=== PATIENT | male | born 1955 | race African-American/Black ===

== ENCOUNTER 2016-10-16 12:10 | Inpatient (IN) | payer MEDICARE, OTHER ==
[~2016-10-16] VITALS: Ht 188 cm; Wt 81.7 kg
[~2016-10-16 12:10] MED LIST: AMLO5TAB22 PO; BENA25TA8 PO; BENZ1TAB PO; DOXA1 PO; HALO10 PO; HYDR-2768 PO; LITH1TAB3 PO
--- NOTE | 2016-10-16 12:27 | PD ---
HPI Chief Complaint: BA Time Seen by Provider: 12:26 Travel History International Travel<30 days: No Contact w/Intl Traveler<30days: No History of Present Illness HPI 61-year-old Afro-[place] male presents to emergency Department with schizophrenic symptoms. Patient is brought in under the Noriega act by local police. Patient is difficult to have a history from as he is somewhat uncooperative and not answering questions. Patient denies any medical complaints at this time. He has no known drug allergies. PFSH Past Medical History Hypertension: Yes Psychiatric: Yes Schizophrenia: Yes Social History Alcohol Use: No Tobacco Use: No Substance Use: No Allergies-Medications (Allergen,Severity, Reaction): Coded Allergies: No Known Allergies (Unverified , 10/16/16) Reported Meds & Prescriptions Reported Meds & Active Scripts Active Benadryl 25 mg tab (Diphenhydramine HCl) 25 Mg Tab 25 Mg PO Q8HR Haldol (Haloperidol) 10 Mg Tab 10 Mg PO TID Lithobid ([place] Carbonate) 300 Mg Tab 600 Mg PO ONCE Benztropine Mesylate 1 Mg Tab 1 Mg PO Q8HR Reported Hctz (Hydrochlorothiazide) 25 Mg Tab 25 Mg PO DAILY Amlodipine Besylate 5 mg (Amlodipine Besylate) 5 Mg Tab 1 Tab PO DAILY Doxazosin Mesylate 4 mg (Doxazosin Mesylate) 4 Mg Tab 4 Mg PO DAILY Review of Systems Except as stated in HPI: all other systems reviewed are Neg General / Constitutional: No: Fever Eyes: No: Visual changes HENT: No: Headaches Cardiovascular: No: Chest Pain or Discomfort Respiratory: No: Shortness of Breath Gastrointestinal: No: Abdominal Pain Genitourinary: No: Dysuria Musculoskeletal: No: Pain Skin: No Rash Neurologic: No: Weakness Psychiatric: No: Depression Endocrine: No: Polydipsia Hematologic/Lymphatic: No: Easy Bruising Physical Exam Narrative GENERAL: SKIN: Warm and dry. HEAD: Atraumatic. Normocephalic. EYES: Pupils equal and round. No scleral icterus. No injection or drainage. ENT: No nasal bleeding or discharge. Mucous membranes pink and moist. NECK: Trachea midline. No JVD. CARDIOVASCULAR: Regular rate and rhythm. RESPIRATORY: No accessory muscle use. Clear to auscultation. Breath sounds equal bilaterally. GASTROINTESTINAL: Abdomen soft, non-tender, nondistended. Hepatic and splenic margins not palpable. MUSCULOSKELETAL: Extremities without clubbing, cyanosis, or edema. No obvious deformities. NEUROLOGICAL: Awake and alert. No obvious cranial nerve deficits. Motor grossly within normal limits. Five out of 5 muscle strength in the arms and legs. Normal speech. PSYCHIATRIC: Appropriate mood and affect; insight and judgment normal. Data Data Last Documented VS Vital Signs Date Time Temp Pulse Resp B/P Pulse Ox O2 Delivery O2 Flow Rate FiO2 10/16/16 12:45 98.2 68 18 138/69 97 Room Air Orders Complete Blood Count With Diff (10/16/16 12:27) Comprehensive Metabolic Panel (10/16/16 12:27) Psych Screen (10/16/16 12:27) Drug Screen, Random Urine (10/16/16 12:27) [place] (Li) (10/16/16 12:40) Diet Regular Basic (10/16/16 Lunch) Labs Laboratory Tests Test 10/16/16 13:10 White Blood Count 4.9 TH/MM3 Red Blood Count 4.07 MIL/MM3 Hemoglobin 12.8 GM/DL Hematocrit 37.7 % Mean Corpuscular Volume 92.8 FL Mean Corpuscular Hemoglobin 31.6 PG Mean Corpuscular Hemoglobin 34.0 % Concent Red Cell Distribution Width 12.8 % Platelet Count 179 TH/MM3 Mean Platelet Volume 8.9 FL Neutrophils (%) (Auto) 67.9 % Lymphocytes (%) (Auto) 22.7 % Monocytes (%) (Auto) 6.5 % Eosinophils (%) (Auto) 2.3 % Basophils (%) (Auto) 0.6 % Neutrophils # (Auto) 3.3 TH/MM3 Lymphocytes # (Auto) 1.1 TH/MM3 Monocytes # (Auto) 0.3 TH/MM3 Eosinophils # (Auto) 0.1 TH/MM3 Basophils # (Auto) 0.0 TH/MM3 CBC Comment DIFF FINAL Differential Comment Sodium Level 137 MEQ/L Potassium Level 3.3 MEQ/L Chloride Level 104 MEQ/L Carbon Dioxide Level 26.1 MEQ/L Anion Gap 7 MEQ/L Blood Urea Nitrogen 7 MG/DL Creatinine 1.06 MG/DL Estimat Glomerular Filtration 86 ML/MIN Rate Random Glucose 79 MG/DL Calcium Level 9.5 MG/DL Total Bilirubin 0.3 MG/DL Aspartate Amino Transf 19 U/L (AST/SGOT) Alanine Aminotransferase 42 U/L (ALT/SGPT) Alkaline Phosphatase 77 U/L Total Protein 7.4 GM/DL Albumin 4.1 GM/DL Urine Opiates Screen NEG Urine Barbiturates Screen NEG Urine Amphetamines Screen NEG Urine Benzodiazepines Screen NEG [place] Level 0.8 MEQ/L Urine Cocaine Screen NEG Urine Cannabinoids Screen NEG MDM Medical Decision Making Medical Screen Exam Complete: Yes Emergency Medical Condition: Yes Medical Record Reviewed: Yes Differential Diagnosis Mood disorder. Schizophrenia. Noriega act Narrative Course Patient appears medically stable at time of exam. Patient is cooperative Psychiatric labs are ordered per protocol as well as lithium level. CBC shows mild anemia. Diagnosis Primary Impression: Psychiatric symptoms Additional Impression: Medical clearance for psychiatric admission Condition: Stable Dallas Thurston Oct 16, 2016 12:27
[2016-10-16 12:45] VITALS: BP 138/69; PULSE 68; RESP 18; TEMP 98.2; O2SAT 97
[2016-10-16 13:38] LABS: AUTOMATED NEUTROPHIL # 3.3 TH/MM3 (1.8-7.7); BASOPHIL % 0.6 % (0.0-2.0); EOSINOPHIL # 0.1 TH/MM3 (0-0.4); EOSINOPHIL % 2.3 % (0.0-4.0); HEMATOCRIT 37.7 % (39.0-51.0); HEMO FLAGS DIFF FINAL; LYMPH % 22.7 % (9.0-44.0); LYMPHOCYTE # 1.1 TH/MM3 (1.0-4.8); MEAN CELL VOLUME 92.8 FL (80.0-100.0); MEAN CORPUSCULAR HEMOGLOBIN 31.6 PG (27.0-34.0); MONO % 6.5 % (0.0-8.0); NEUT % 67.9 % (16.0-70.0); PLATELET COUNT 179 TH/MM3 (150-450); RED BLOOD COUNT 4.07 MIL/MM3 (4.50-5.90); RED CELL DISTRIBUTION WIDTH 12.8 % (11.6-17.2); WHITE BLOOD COUNT 4.9 TH/MM3 (4.0-11.0)
[2016-10-16 13:49] LABS: AMPHETAMINE, URINE NEG (NEG); BARBITURATES, URINE NEG (NEG); COCAINE, URINE NEG (NEG)
[2016-10-16 14:00] LABS: ALT (GPT) 42 U/L (12-78); ANION GAP 7 MEQ/L (5-15); AST (GOT) 19 U/L (15-37); BICARBONATE 26.1 MEQ/L (21.0-32.0); BLOOD UREA NITROGEN 7 MG/DL (7-18); CHLORIDE 104 MEQ/L (98-107); GLOMERULAR FILTRATION RATE 86 ML/MIN (>89); POTASSIUM 3.3 MEQ/L (3.5-5.1); SODIUM (NA) 137 MEQ/L (136-145)
[2016-10-16 14:02] LABS: ALKALINE PHOSPHATASE 77 U/L (45-117); TOTAL BILIRUBIN ADULT 0.3 MG/DL (0.2-1.0)
[2016-10-16 18:39] VITALS: BP 159/107; PULSE 69; RESP 18; O2SAT 99
[2016-10-16] MEDS ORDERED: LITH300C2 PO (20:17)
[2016-10-16] MEDS ORDERED: DIPH25CA PO (20:17)
[2016-10-16] MEDS ORDERED: BENZ0.5T PO (20:17)
[2016-10-16 22:00] VITALS: BP 157/119; PULSE 56; RESP 20; TEMP 96.9; O2SAT 98
[2016-10-16] MEDS ORDERED: OLANZapine 5 MG TAB PO ONE (22:30)
[2016-10-17 02:00] VITALS: BP 143/92; PULSE 52; RESP 20; TEMP 96.7; O2SAT 100
[2016-10-17 04:52] VITALS: BP 127/70; PULSE 79; RESP 18; O2SAT 98
[2016-10-17 06:05] VITALS: BP 154/94; PULSE 75; RESP 18; TEMP 96.9; O2SAT 100
[2016-10-17 09:12] VITALS: BP 166/91; PULSE 68; RESP 18; TEMP 97.1; O2SAT 98
--- NOTE | 2016-10-17 09:54 | HHI.HP ---
Provisional Diagnosis Admission Date Oct 17, 2016 at 08:11 [place] I. 1. Schizophrenia, paranoid type, acute decompensation [place] II. Deferred [place] V. GAF is 25 presently. Certification of Person's Competence To Provide Express and Informed Consent I have personally examined Pihlip Meier , a person being served at [facility] on, Oct 17, 2016 09:44. Express and informed consent means consent voluntarily given in writing, by a competent person, after sufficient explanation and disclosure of the subject matter involved to enable the person to make a knowing and willful decision without any element of force, fraud, deceit, duress, or other form of constraint or coercion. This person is 18 years of age or older, is not now known to be incompetent to consent to treatment with a guardian advocate, and does not have a health care surrogate or proxy currently making medical treatment decisions. I have found this person to be one of the following: [] Competent to provide express and informed consent, as defined above, for voluntary admission to this facility and is competent to provide express and informed consent for treatment. He/she has the consistent capacity to make well reasoned, willful, and knowing decisions concerning his or her medical or mental health treatment. The person fully and consistently understands the purpose of the admission for examination/placement and is fully capable of personally exercising all rights assured [place] [x] Incompetent to provide express and informed consent to voluntary admission, and this is incompetent to provide express and informed consent to treatment. The person must be transferred to involuntary status and a petition for a guardian advocate filed with the Circuit Court. [] Refusing to provide express and informed consent to voluntary admission but is competent to provide express and informed consent for treatment. The person must be discharged or transferred to involuntary status. Form shall be completed within 24 hours of a person's arrival at the receiving facility and filed in the clinical record of each person: 1. Admitted on a voluntary basis 2. Permitted to provide express and informed consent to his/her own treatment 3. Allowed to transfer from involuntary to voluntary status 4. Prior to permitting a person to consent to his or her own treatment after having been previously found incompetent to consent to treatment. History of Present Illness Capacity: Lacks Capacity HPI Mr. Meier is a 61 year-old male with a history of who presents under a Noriega Act from [facility] alleging that the patient was delusional, hallucinating and violent in the office. Reviewing the EMR, I see no prior psychiatric contact within our system. Patient seen and examined with RN. Chart reviewed. Case discussed with RN. Patient is uncooperative with interview. He repeatedly demands to be discharged. He wanders away at numerous points in the interview. He appears internally stimulated. He has an irritable edge and angrily throws some magazines around on the table. He will only say that "I just want to sign fo my discharge. It's hell without food, lights, clothes, whatever." Psychiatric interview is limited because of patient uncooperativeness. Placed a call to patient's outpatient provider, EDITH Arroyo [phone]. She was in with a patient. I will try back later. Spoke with patient's sister, Bianca Cortes. Ms. Cortes says patient has lived with her for the last 1.5 years. He was in his usual state of health until 1 week ago when she notes pt began to complain of hearing things. She does not suspect med non-adherence because she supervises med administration. She notes that patient has been fixated lately on going to [place] to be with his 2 sons. Review of Systems ROS Limitations: Uncooperative, Poor Historian Except as stated in HPI: all other systems reviewed are Neg Past Psych History Psychological trauma history Unknown. Violence risk - others (6 mos) Concern for elevated risk. Allegations of violence and outpatient office per Noriega act. Violence risk - self (6 mos) Indeterminate. Patient is psychotic and unpredictable. Substance Abuse History Drugs/Alcohol past 12 months Unable to obtain from patient as he is uncooperative. Urine toxicology was negative. Past Family Social History Coded Allergies: No Known Allergies (Unverified , 10/16/16) Past Medical History See electronic medical record Reported Medications Diphenhydramine HCl (Benadryl Allergy)25 Mg Cap Prn (Anxiety) 10/17/16 [place] Carbonate 300 Mg [id number] Mg PO BID NEB Ref 0 10/17/16 Lurasidone (Latuda)80 Mg Tab80 Mg PO DAILY #30 TAB Ref 0 10/17/16 Benztropine 0.5 Mg Tab1 Mg PO TID #60 TAB Ref 0 10/17/16 Haloperidol 10 Mg Tab10 Mg PO TID PRN (ANXIETY AND/OR AGITATION) Ref 0 10/17/16 Hydrochlorothiazide 25 Mg Tab25 Mg PO DAILY #30 TAB Ref 0 10/17/16 Amlodipine 5 Mg Tab5 Mg PO DAILY #30 TAB Ref 0 10/17/16 Doxazosin 4 Mg Tab4 Mg PO DAILY PRN (SBP>160, DBP>90) #30 TAB Ref 0 10/17/16 Benztropine 0.5 Mg Tab1 Mg PO BID #60 TAB Ref 0 10/16/16 Diphenhydramine 25 Mg Cap50 Mg PO ONCE #1 CAP Ref 0 10/16/16 [place] Carbonate 300 Mg [id number] Mg PO BID Ref 0 10/16/16 Discontinued Reported Medications Hydrochlorothiazide (Hctz)25 Mg Tab25 Mg PO DAILY 12/12/15 Amlodipine Besylate 5 mg 5 Mg Tab1 Tab PO DAILY 12/12/15 Doxazosin Mesylate 4 Mg Tab4 Mg PO DAILY 12/12/15 Discontinued Scripts Diphenhydramine 25 mg tab (Benadryl 25 mg tab)25 Mg Tab25 Mg PO Q8HR #2 TAB Prov:Jennifer Bangura 12/12/15 Haloperidol (Haldol)10 Mg Tab10 Mg PO TID #2 TAB Prov:Meghan Chacko MD 12/12/15 [place] Carbonate (Lithobid)300 Mg [id number] Mg PO ONCE #2 TAB Prov:Meghan Chacko MD 12/12/15 Benztropine Mesylate (Benztropine Mesylate)1 Mg Tab1 Mg PO Q8HR #2 TAB Prov:Meghan Chacko MD 12/12/15 Family History Unable to obtain from patient as he is uncooperative Social History Unable to obtain from patient as he is uncooperative Patient's Strengths (min. 2) In a monitored setting. Verbally fluent. Physical Exam Physical examination completed by ED provider. On my examination today, the patient appears to be in no acute physical distress. He appears to be well- nourished and well-developed. He does have a mild resting tremor and perioral tremor but otherwise no motoric abnormalities are noted. Steady gait and station. Laboratories and vital signs reviewed: Vital Signs Vital Signs Date Time Temp Pulse Resp B/P Pulse Ox O2 Delivery O2 Flow Rate FiO2 10/17/16 09:12 97.1 68 18 166/91 98 10/17/16 06:05 Room Air Lab Results Item Value Date Time White Blood Count 4.9 TH/MM3 10/16/16 1310 Hemoglobin 12.8 GM/DL L 10/16/16 1310 Platelet Count 179 TH/MM3 10/16/16 1310 Sodium Level 137 MEQ/L 10/16/16 1310 Potassium Level 3.3 MEQ/L L 10/16/16 1310 Chloride Level 104 MEQ/L 10/16/16 1310 Carbon Dioxide Level 26.1 MEQ/L 10/16/16 1310 Blood Urea Nitrogen 7 MG/DL 10/16/16 1310 Creatinine 1.06 MG/DL 10/16/16 1310 Aspartate Amino Transf (AST/SGOT) 19 U/L 10/16/16 1310 Alanine Aminotransferase (ALT/SGPT) 42 U/L 10/16/16 1310 Alkaline Phosphatase 77 U/L 10/16/16 1310 [place] Level 0.8 MEQ/L 10/16/16 1310 Urine Opiates Screen NEG 10/16/16 1310 Urine Barbiturates Screen NEG 10/16/16 1310 Urine Amphetamines Screen NEG 10/16/16 1310 Urine Benzodiazepines Screen NEG 10/16/16 1310 Urine Cocaine Screen NEG 10/16/16 1310 Urine Cannabinoids Screen NEG 10/16/16 1310 Mental Status Examination Patient is in hospital attire. He is fairly well groomed. He is awake and alert and oriented to person and hospital at least. Motor exam as above. Speech is somewhat terse and angry. Language and fund of knowledge are difficult to assess as the patient is fairly uncooperative. Focus and concentration are likewise difficult to assess as is memory for the same reason. Mood and affect are restricted, dysphoric and irritable. Thought process perseverative on discharge. Paranoia is present. Patient is internally preoccupied. He does not verbalize any suicidal or homicidal ideation but seems unreliable to contract for safety. Insight and judgment are presently poor. Assessment & Plan Problem List: (1) Paranoid type schizophrenia, chronic state ICD Code: F20.0 Assessment & Plan This is a 61-year-old male with psychiatric history as detailed above who presents under a Noriega act. On my examination today, the patient is largely uncooperative with interview but seems internally preoccupied , irritable and paranoid. Collateral from patient's sister with whom he lives suggests that he has been decompensating over the last week or so. His lithium level is within the therapeutic range suggesting at least some degree of medication adherence. I will plan to admit the patient to the inpatient psychiatric unit for observation and stabilization. Admit inpatient. Involuntary status. I've completed first opinion. Consult for second opinion. Request healthcare surrogate and guardian advocate. Replete potassium. Recheck BMP and magnesium in the morning. Check a TSH because of lithium therapy. Check a hemoglobin A1c and lipid panel in the morning. Check a CBC in the morning to follow-up anemia. Check an EKG for QTC. Titrate Latuda to 120 mg with dinner to target psychosis. Continue Haldol 10 mg 3 times daily as ordered. I will additionally order Haldol IM backup should the patient refuse oral Haldol. I will continue the patient's antihypertensives and add clonidine as needed for elevated blood pressure. Ativan as needed for anxiety, Cogentin as needed for EPS, Benadryl as needed for sleep. Fall precautions. Violent/assaultive precautions. Vitals every shift. Counselor to see. Disposition planning. Estimated length of stay: One to 2 weeks. Discharge Planning Pending psychiatric stabilization. Request HC Surrog/Guard Advoc?: Yes Francisco Iniguez MD Oct 17, 2016 09:54
[2016-10-17] MEDS ORDERED: POTASSIUM CHLORIDE 10 MEQ CONTROLLED RELEASE TAB PO ONE (10:00)
[2016-10-17] MEDS ORDERED: BENA25CA4 (10:58)
[2016-10-17] MEDS ORDERED: DOXA1TAB34 PO (10:58)
[2016-10-17] MEDS ORDERED: LITH300T3 PO (10:58)
[2016-10-17] MEDS ORDERED: AMLO5TAB2 PO (10:58)
[2016-10-17] MEDS ORDERED: HALO10TA PO (10:58)
[2016-10-17] MEDS ORDERED: LURA80 PO (10:58)
[2016-10-17] MEDS ORDERED: BENZ0.5T PO (10:58)
[2016-10-17] MEDS ORDERED: HYDR25TA5 PO (10:58)
--- NOTE | 2016-10-17 10:59 | PD.CONS ---
Provisional Diagnosis Admission Date Oct 17, 2016 at 08:11 [place] I. 1. Schizophrenia, paranoid type, acute decompensation [place] II. Deferred [place] V. GAF is 25 presently. History of Present Illness Service Psychiatry Consult Requested By Primary Care Physician No Primary Care Physician HPI Mr. Meier is a 61 year-old male with a history of who presents under a [place] Act from [facility] alleging that the patient was delusional, hallucinating and violent in the office. Reviewing the EMR, I see no prior psychiatric contact within our system. Patient seen and examined with RN. Chart reviewed. Case discussed with RN. Patient is uncooperative with interview. He repeatedly demands to be discharged. He wanders away at numerous points in the interview. He appears internally stimulated. He has an irritable edge and angrily throws some magazines around on the table. He will only say that "I just want to sign fo my discharge. It's hell without food, lights, clothes, whatever." Placed a call to patient's outpatient provider, EDITH Arroyo. Left a message requesting a call back. 10/17/16 Above note dictated by Dr. Iniguez reviewed and agreed with. Patient is 61- year-old Afro-Croatian male amended to Dr. Iniguez service under the Noriega act. Patient seen with nurse and medical student Murtaza in his room patient markedly disorganized confused and vigilant saying his hands were cut off of and some bedtime again which is widely her trembling, he is in [place] at this time. Says he wants to back on his medication of lithium Cogentin and Depakote Dr. Iniguez signed first opinion petition supporting Noriega act. I agree. Patient meets criteria for involuntary psychiatric hospitalization under the Noriega act thus I'll cosign second opinion petition supporting Noriega act Past Family Social History Coded Allergies: No Known Allergies (Unverified , 10/16/16) Reported Medications Benztropine 0.5 Mg Tab1 Mg PO BID #60 TAB Ref 0 10/16/16 Diphenhydramine 25 Mg Cap50 Mg PO ONCE #1 CAP Ref 0 10/16/16 [place] Carbonate 300 Mg [id number] Mg PO BID Ref 0 10/16/16 Discontinued Reported Medications Hydrochlorothiazide (Hctz)25 Mg Tab25 Mg PO DAILY 8/21/16 Amlodipine Besylate 5 mg 5 Mg Tab1 Tab PO DAILY 12/12/15 Doxazosin Mesylate 4 Mg Tab4 Mg PO DAILY 12/12/15 Discontinued Scripts Diphenhydramine 25 mg tab (Benadryl 25 mg tab)25 Mg Tab25 Mg PO Q8HR #2 TAB Prov:Jennifer Bangura 12/12/15 Haloperidol (Haldol)10 Mg Tab10 Mg PO TID #2 TAB Prov:Meghan Chacko MD 12/12/15 [place] Carbonate (Lithobid)300 Mg [id number] Mg PO ONCE #2 TAB Prov:Meghan Chacko MD 12/12/15 Benztropine Mesylate (Benztropine Mesylate)1 Mg Tab1 Mg PO Q8HR #2 TAB Prov:Meghan Chacko MD 12/12/15 Physical Exam Vital Signs Vital Signs Date Time Temp Pulse Resp B/P Pulse Ox O2 Delivery O2 Flow Rate FiO2 10/17/16 09:12 97.1 68 18 166/91 98 10/17/16 06:05 Room Air Mental Status Examination Alert tall slender Afro-Croatian male laying calmly on his bed in his room with staff person as mentioned above Appearance Mildly disheveled Speech: Other (markedly disorganized) Orientation: Person Memory: Impaired (describe) Thought Process: Loose Association Thought Content: Other (markedly disorganized) Language Poor Fund of Knowledge Poor Hallucination Type: None (denies that appears to be responding to internal stimuli) Attention and Concentration: Other (poor) Suicidal Ideation: No Previous Suicide Attempts: No Homicidal Ideation: No Previous Homicide Attempts: No Insight: Poor Judgment: Poor Affect: Other (decreased range intensity) Mood: Oppositional (mildly), Irritable (mildly) Motor Activity: Normal gait Assessment & Plan Problem List: (1) Paranoid type schizophrenia, chronic state ICD Code: F20.0 Assessment & Plan Estimated LOS: Mick Santamaria MD Oct 17, 2016 10:58
[2016-10-17] MEDS ORDERED: HALOPERIDOL LACTATE 5 MG/ML AMP IM PRN (12:15)
[2016-10-17] MEDS ORDERED: BENZTROPINE MESYLATE 1 MG TAB PO PRN (12:15)
[2016-10-17] MEDS ORDERED: MAGNESIUM HYDROXIDE SUSP 30 ML CUP PO PRN (12:15)
[2016-10-17] MEDS ORDERED: ALUMINUM/MAGNESIUM/SIMETH 30 ML CUP PO PRN (12:15)
[2016-10-17] MEDS ORDERED: BENZTROPINE MESYLATE 2 MG/2 ML VIAL IM PRN (12:15)
[2016-10-17] MEDS ORDERED: LORazepam 1 MG TAB PO PRN (12:15)
[2016-10-17] MEDS ORDERED: LORazepam 2 MG/ML VIAL IM PRN (12:15)
[2016-10-17] MEDS: HALOPERIDOL 10 MG TAB PO SCH ×2 (12:59→17:58)
[2016-10-17] MEDS: ACETAMINOPHEN 325 MG TAB PO PRN (16:25)
[2016-10-17] MEDS ORDERED: LURASIDONE 40 MG TAB PO SCH (18:00)
[2016-10-17 18:08] VITALS: BP 165/97; PULSE 68; RESP 18; TEMP 97.1; O2SAT 98
[2016-10-17] MEDS: BENZTROPINE MESYLATE 1 MG TAB PO SCH (21:40)
[2016-10-17] MEDS: LITHIUM CARBONATE 300 MG CAP PO SCH (21:40)
[2016-10-18 06:08] VITALS: BP 158/98; PULSE 74; RESP 18; TEMP 97.5; O2SAT 97
[2016-10-18] MEDS: DOXAZOSIN MESYLATE 4 MG TAB PO PRN (06:08)
[2016-10-18] MEDS ORDERED: amLODIPine BESYLATE 5 MG TAB PO SCH (09:00)
[2016-10-18] MEDS: HYDROCHLOROTHIAZIDE 25 MG TAB PO SCH (09:50)
[2016-10-18] MEDS: HALOPERIDOL 10 MG TAB PO SCH ×4 (09:51→20:14)
[2016-10-18] MEDS: BENZTROPINE MESYLATE 1 MG TAB PO SCH ×3 (09:51→18:11)
[2016-10-18] MEDS: LITHIUM CARBONATE 300 MG CAP PO SCH ×2 (09:51→20:13)
[2016-10-18] MEDS ORDERED: POTASSIUM CHLORIDE 25 MEQ EFFERVESCENT TAB PO ONE (10:00)
--- NOTE | 2016-10-18 11:35 | HHI.PYPN ---
Subjective Remarks Patient seen and examined with counselor. Chart reviewed. Case discussed with nursing staff reports that the patient has been childlike and giggling to himself. On my examination today, the patient is somewhat calmer today versus yesterday. He describes his mood as "pretty good." He does remain somewhat childlike as indicated by the nurse. When I ask about audiovisual hallucinations he says "I'm having an argument even with myself." He denies any SI or HI. Some bizarre ideation. Patient tells me, for example, to "watch the elders." Ongoing resting tremor but no other evident side effects from meds. No physical complaints. Spoke with EDITH Arroyo. She reports patient has followed at [facility] since June 2015, although presenting visit was her first with the patient. She notes patient's home meds are Latuda 160mg with dinner, Haldol 10mg TID, lithium 300mg BID, Cogentin 1mg TID, Benadryl 25mg BID, although she would prefer that he be on only a single med for management of EPS, as would I. Review of Systems ROS Limitations: Psychotic, Poor Historian Except as stated in HPI: all other systems reviewed are Neg Objective Alert: Yes [place]: Person, Place Mood: Other (calmer) Affect: Other (childlike) Memory Intact: Comment (not formally assessed) Hallucinations: Other (internally preoccupied) Delusions: Yes Delusion Type: Other (some bizarre ideation) Suicidal: Ideation (denies SI) Homicidal: Ideation (denies HI) Insight/Judgment Poor Remarks Besides the resting tremor, no other motor abnormalities noted. Patient refuses physical exam. Grooming and hygiene fair. Thought process somewhat disorganized. Labs Labs reviewed. Patient refused laboratories. EKG was read as sinus bradycardia with a QTC of 413 ms. Vitals/IOs Vital Signs Date Time Temp Pulse Resp B/P Pulse Ox O2 Delivery O2 Flow Rate FiO2 10/18/16 06:08 97.5 74 18 158/98 97 10/17/16 06:05 Room Air Assessment & Plan Problem List: (1) Paranoid type schizophrenia, chronic state ICD Code: F20.0 Assessment & Plan Titrate Latuda to home dose of 160 mg with dinner. In light of ongoing psychosis, titrate Haldol to 10 mg 4 times daily. To consider Haldol Dec[place]ate. Continue lithium as ordered. Instead of adding scheduled Benadryl to his Cogentin, I will titrate his scheduled Cogentin to 1 mg 3 times daily with additional Cogentin available as needed for EPS. Continue to monitor on the high acuity unit. Continue other medications and care as ordered. Justification for Cont. Inpt. Medication changes and process. High risk for decompensation in a less restrictive environment. Discharge Planning Pending psychiatric stabilization Request HC Surrog/Guard Advoc?: Yes Francisco Iniguez MD Oct 18, 2016 11:35
[2016-10-18] MEDS ORDERED: HALOPERIDOL LACTATE 5 MG/ML AMP IM PRN (13:00)
--- NOTE | 2016-10-18 15:31 | PD.CONS ---
HPI Service [facility] Consult Requested By Psychiatry team Reason for Consult Hypertension Primary Care Physician No Primary Care Physician Diagnoses: History of Present Illness Patient is a 61-year-old male with primary medical history of hypertension, schizophrenia who came into the hospital secondary to schizophrenic symptoms. As per review of records, patient is brought in under [place] act by local police. He is now admitted to inpatient psychiatry unit for further evaluation. Consulted for medical management. Patient seen and examined today. States he doesn't need anything. He denies any medical problems. 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 He is aware that he is in the hospital and he is requesting for cigarettes. States he smokes a pack a day and wants to light up one now. Notable right hand tremors, when patient was asked about it he states "I have this tremors because the nurse gave me something." Otherwise,denies pain and discomfort. Denies SOB/ dyspnea. Denies chest pain, palpitations, headaches, dizziness. Denies fevers, chills, n/v/d. Denies dysuria. Review of Systems ROS Limitations: Psychotic, Poor Historian Past Family Social History Allergies: Coded Allergies: No Known Allergies (Unverified , 10/16/16) Past Medical History Review of records, hypertension Schizophrenia Past Surgical History States football, basketball injury Reported Medications Reported Meds & Active Scripts Active Reported Benadryl Allergy (Diphenhydramine HCl) 25 Mg Cap PRN Hecker Carbonate 300 Mg Tab 300 Mg PO BID NEB Benztropine (Benztropine Mesylate) 0.5 Mg Tab 1 Mg PO TID Haloperidol 10 Mg Tab 10 Mg PO TID PRN Hydrochlorothiazide 25 Mg Tab 25 Mg PO DAILY Amlodipine (Amlodipine Besylate) 5 Mg Tab 5 Mg PO DAILY Doxazosin (Doxazosin Mesylate) 4 Mg Tab 4 Mg PO DAILY PRN Benztropine (Benztropine Mesylate) 0.5 Mg Tab 1 Mg PO BID Diphenhydramine (Diphenhydramine HCl) 25 Mg Cap 50 Mg PO ONCE Hecker Carbonate 300 Mg Cap 300 Mg PO BID Active Ordered Medications Current Medications Medications (Trade) Dose Ordered Sig/Beverly Route Start Time Stop Time Status Last Admin (Norvasc) 5 mg DAILY PO 10/18/16 09:00 10/18/16 09:00 (Cardura) 4 mg DAILY PRN PO 10/17/16 12:00 10/18/16 06:08 (Hydrodiuril) 25 mg DAILY PO 10/18/16 09:00 10/18/16 09:50 (Hecker Carbonate) 300 mg BID PO 10/17/16 21:00 10/18/16 09:51 (Ativan) 1 mg Q6H PRN PO 10/17/16 12:15 (Ativan Inj) 1 mg Q6H PRN IM 10/17/16 12:15 (Benadryl) 50 mg HS PRN PO 10/17/16 12:15 (Tylenol) 650 mg Q4H PRN PO 10/17/16 12:15 10/17/16 16:25 (Milk Of Magnesia Liq) 30 ml DAILY PRN PO 10/17/16 12:15 (Mag-Al Plus Susp Liq) 30 ml Q6H PRN PO 10/17/16 12:15 (Cogentin) 1 mg Q12H PRN PO 10/17/16 12:15 (Cogentin Inj) 1 mg Q12H PRN IM 10/17/16 12:15 (Catapres) 0.1 mg Q8HR PRN PO 10/17/16 12:15 (Cogentin) 1 mg TID PO 10/18/16 13:00 10/18/16 13:00 (Haldol) 10 mg QID PO 10/18/16 13:00 10/18/16 13:00 (Haldol Inj) 10 mg QID PRN IM 10/18/16 13:00 Family History Denies any family medical history Social History Denies alcohol use, states he uses non-alcoholic beverages Smokes 1 pack per day Denies illicit drug use Physical Exam Vital Signs Vital Signs Date Time Temp Pulse Resp B/P Pulse Ox O2 Delivery O2 Flow Rate FiO2 10/18/16 06:08 97.5 74 18 158/98 97 10/17/16 18:08 97.1 68 18 165/97 98 Physical Exam GENERAL: This is a well-nourished, well-developed patient, in no apparent distress. SKIN: Warm and dry HEAD: Atraumatic. Normocephalic. No temporal or scalp tenderness. EYES: Pupils equal round and reactive. No scleral icterus. No injection or drainage. ENT: Nose without bleeding. Throat without erythema. Uvula midline. Airway patent. NECK: Trachea midline. No JVD or lymphadenopathy. Supple, nontender, no meningeal signs. CARDIOVASCULAR: Regular rate and rhythm without murmurs, gallops, or rubs. RESPIRATORY: Clear to auscultation. Breath sounds equal bilaterally. No wheezes , rales, or rhonchi. GASTROINTESTINAL: Abdomen soft, non-tender, nondistended. No hepato-splenomegaly , or palpable masses. No guarding. MUSCULOSKELETAL: Extremities without clubbing, cyanosis, or edema. Right hand tremors. NEUROLOGICAL: Awake and alert. Oriented to person, place. Motor and sensory grossly within normal limits. Normal speech. Result Diagram: 10/16/16 1310 10/16/16 1310 Assessment and Plan Problem List: (1) Paranoid type schizophrenia, chronic state ICD Code: F20.0 Status: Acute (2) HTN (hypertension) ICD Code: I10 Status: Acute Assessment and Plan Patient is a 61-year-old male with primary medical history of hypertension, schizophrenia who came into the hospital secondary to schizophrenic symptoms. As per review of records, patient is brought in under [place] act by local police. He is now admitted to inpatient psychiatry unit for further evaluation. Consulted for medical management. Paranoid schizophrenia - Managed by psychiatry team HTN, accelerated - Restart home medications amlodipine 5 mg daily, hydrochlorothiazide 25 mg daily - Doxasozin 4mg PRN SBP > 160, DBP >90 - Monitor BP trend Anemia, normocytic normochromic - Possibly from chronic disease - Check iron panel, ferritin study - May supplement with iron if necessary Hypokalemia - Potassium replacement - Recheck BMP DVT prop ambulatory Thank you for this consultation. We will follow patient with you. Code Status Full code Discussed Condition With Patient, nursing, Huber Gonzalez Oct 18, 2016 15:31
[2016-10-18] MEDS: LURASIDONE 40 MG TAB PO SCH (18:12)
[2016-10-18 18:13] VITALS: BP 157/90; PULSE 65; RESP 18; TEMP 98.1; O2SAT 98
--- NOTE | 2016-10-18 23:41 | EKG ---
Date Performed: 10/17/2016 Time Performed: 14:53:48 PTAGE: 61 years EKG: SINUS BRADYCARDIA NONSPECIFIC T-WAVE ABNORMALITY BORDERLINE ECG NO PREVIOUS TRACING DOCTOR: David Astudillo Interpretating Date/Time 10/18/2016 23:39:57
[2016-10-19] MEDS: DOXAZOSIN MESYLATE 4 MG TAB PO PRN (05:55)
[2016-10-19 06:04] VITALS: BP 154/105; PULSE 64; RESP 18; TEMP 97.3; O2SAT 100
[2016-10-19 08:28] LABS: AUTOMATED NEUTROPHIL # 2.2 TH/MM3 (1.8-7.7); BASOPHIL % 0.5 % (0.0-2.0); EOSINOPHIL # 0.1 TH/MM3 (0-0.4); EOSINOPHIL % 4.1 % (0.0-4.0); HEMATOCRIT 40.3 % (39.0-51.0); HEMO FLAGS DIFF FINAL; LYMPH % 27.7 % (9.0-44.0); MEAN CELL VOLUME 94.2 FL (80.0-100.0); MEAN CORPUSCULAR HEMOGLOBIN 30.6 PG (27.0-34.0); MEAN CORPUSCULAR HGB CONC 32.5 % (32.0-36.0); MONO % 8.2 % (0.0-8.0); NEUT % 59.5 % (16.0-70.0); PLATELET COUNT 182 TH/MM3 (150-450); RED BLOOD COUNT 4.28 MIL/MM3 (4.50-5.90); RED CELL DISTRIBUTION WIDTH 12.7 % (11.6-17.2); WHITE BLOOD COUNT 3.6 TH/MM3 (4.0-11.0)
[2016-10-19 08:48] LABS: ANION GAP 8 MEQ/L (5-15); BLOOD UREA NITROGEN 7 MG/DL (7-18); CHLORIDE 106 MEQ/L (98-107); GLOMERULAR FILTRATION RATE 86 ML/MIN (>89); MAGNESIUM 2.4 MG/DL (1.5-2.5); POTASSIUM 3.1 MEQ/L (3.5-5.1); SODIUM (NA) 138 MEQ/L (136-145)
[2016-10-19] MEDS: HALOPERIDOL 10 MG TAB PO SCH ×4 (08:54→21:12)
[2016-10-19] MEDS: BENZTROPINE MESYLATE 1 MG TAB PO SCH ×3 (08:54→18:00)
[2016-10-19] MEDS: HYDROCHLOROTHIAZIDE 25 MG TAB PO SCH (08:54)
[2016-10-19] MEDS: LITHIUM CARBONATE 300 MG CAP PO SCH ×2 (08:54→21:12)
[2016-10-19 08:58] LABS: FERRITIN 77 NG/ML (26-388); HDL CHOLESTEROL 57.2 MG/DL (40.0-60.0); LDL CHOLESTEROL 49 MG/DL (0-99); TRANSFERRIN IRON PROFILE 273 MG/DL (200-360)
[2016-10-19] MEDS ORDERED: POTASSIUM CHLORIDE 10 MEQ CONTROLLED RELEASE TAB PO ONE (09:00)
--- NOTE | 2016-10-19 12:09 | HHI.PYPN ---
Subjective Remarks Patient seen and examined. Chart reviewed. Case discussed with nursing staff who reports that the patient as somewhat childlike but no behavioral problem. For me today, patient is in good spirits. He is calm and pleasant. No reported AVH. No SI or HI. No new side effects from medications. Resting tremor seems to be improved with titration of Cogentin. No physical complaints. Placed a call to patient's sister, Ms. Cortes. She plans to come visit the patient this evening, and if he seems improved to her, she is willing to accept him home tomorrow. She would like to see the patient given Haldol Decanoate injection prior to discharge though, because she notes that the patient has done well with this agent in the past. Review of Systems ROS Limitations: Poor Historian Except as stated in HPI: all other systems reviewed are Neg Objective Alert: Yes [place]: Person, Place Mood: Calm Affect: Euthymic Memory Intact: Comment (Not assessed) Hallucinations: Other (None) Delusions: Yes Delusion Type: Other (No delusions) Suicidal: Ideation (No SI) Homicidal: Ideation (No HI) Insight/Judgment Poor Remarks Resting tremor appears to be improved. No other motoric abnormalities noted. Labs Test 10/19/16 06:20 White Blood Count 3.6 TH/MM3 Red Blood Count 4.28 MIL/MM3 Hemoglobin 13.1 GM/DL Hematocrit 40.3 % Mean Corpuscular Volume 94.2 FL Mean Corpuscular Hemoglobin 30.6 PG Mean Corpuscular Hemoglobin 32.5 % Concent Red Cell Distribution Width 12.7 % Platelet Count 182 TH/MM3 Mean Platelet Volume 9.0 FL Neutrophils (%) (Auto) 59.5 % Lymphocytes (%) (Auto) 27.7 % Monocytes (%) (Auto) 8.2 % Eosinophils (%) (Auto) 4.1 % Basophils (%) (Auto) 0.5 % Neutrophils # (Auto) 2.2 TH/MM3 Lymphocytes # (Auto) 1.0 TH/MM3 Monocytes # (Auto) 0.3 TH/MM3 Eosinophils # (Auto) 0.1 TH/MM3 Basophils # (Auto) 0.0 TH/MM3 CBC Comment DIFF FINAL Differential Comment Sodium Level 138 MEQ/L Potassium Level 3.1 MEQ/L Chloride Level 106 MEQ/L Carbon Dioxide Level 24.0 MEQ/L Anion Gap 8 MEQ/L Blood Urea Nitrogen 7 MG/DL Creatinine 1.06 MG/DL Estimat Glomerular Filtration 86 ML/MIN Rate Random Glucose 104 MG/DL Calcium Level 8.9 MG/DL Magnesium Level 2.4 MG/DL Iron Level 90 MCG/DL Total Iron Binding Capacity 382 MCG/DL Percent Iron Saturation 23.5 % Ferritin 77 NG/ML Triglycerides Level 76 MG/DL Cholesterol Level 121 MG/DL LDL Cholesterol 49 MG/DL HDL Cholesterol 57.2 MG/DL Cholesterol/HDL Ratio 2.11 RATIO Thyroid Stimulating Hormone 1.650 uIU/ML 3rd Gen Labs reviewed. Mild leukopenia without granulocytopenia noted. Hypokalemia noted, and I have ordered this repleted. GFR stable. TSH within normal limits. Vitals/IOs Vital Signs Date Time Temp Pulse Resp B/P Pulse Ox O2 Delivery O2 Flow Rate FiO2 10/19/16 06:04 97.3 64 18 154/105 100 10/17/16 06:05 Room Air Assessment & Plan Problem List: (1) Paranoid type schizophrenia, chronic state ICD Code: F20.0 Assessment & Plan Continue Haldol and Latuda as ordered. Plan for Haldol Decanoate prior to discharge. Check a BMP in the morning. Check a CBC to follow-up very mild leukopenia, although I suspect this is an incidental finding. Hospitalist input noted and appreciated. Continue to monitor on the inpatient unit. Continue other medications and care as ordered. Justification for Cont. Inpt. Risk for decompensation Discharge Planning Possible discharge home with sister tomorrow, Sunday. Request HC Surrog/Guard Advoc?: Yes Francisco Iniguez MD Oct 19, 2016 12:09
[2016-10-19 16:10] LABS: HEMOGLOBIN A1a 0.8 %; HEMOGLOBIN A1b 1.3 %; HEMOGLOBIN Ao 87.2 %; HEMOGLOBIN LA1C 1.8 %; HEMOGLOBIN P3 3.4 %
[2016-10-19 16:57] VITALS: BP 150/86; PULSE 60; RESP 18; TEMP 97.6; O2SAT 99
[2016-10-19] MEDS: LURASIDONE 40 MG TAB PO SCH (18:13)
[2016-10-20 05:55] VITALS: BP 154/99; PULSE 66; RESP 18; TEMP 97.5; O2SAT 98
[2016-10-20] MEDS: LITHIUM CARBONATE 300 MG CAP PO SCH ×2 (09:23→20:09)
[2016-10-20] MEDS: HALOPERIDOL 10 MG TAB PO SCH ×4 (09:23→20:09)
[2016-10-20] MEDS: BENZTROPINE MESYLATE 1 MG TAB PO SCH ×2 (09:23→12:55)
[2016-10-20] MEDS: HYDROCHLOROTHIAZIDE 25 MG TAB PO SCH (09:23)
--- NOTE | 2016-10-20 12:18 | HHI.PYPN ---
Subjective Remarks Patient seen and examined with counselor and nurse. Chart reviewed. Case discussed with nursing staff reports that the patient has been cooperative been no behavioral problem. On my examination today, I note the patient has a fairly significant resting hand tremor, exacerbated with ambulation. He is somewhat discharge focused noting, "I been good." He visited with his sister, Sabine, last night and says the visit went well. He does want to go home to her house but notes, "Sabine's house be full of blood." He cannot explain what this means. He denies AVH, although he does remain a little internally preoccupied. He denies SI or HI. Denies side effects from medications. No physical complaints. Review of Systems ROS Limitations: Psychotic, Poor Historian Except as stated in HPI: all other systems reviewed are Neg Objective Alert: Yes [place]: Person, Place Mood: Calm Affect: Blunted Memory Intact: Comment (Not assessed) Hallucinations: Other (Denies AVH. Does appear a little int stim) Delusions: No Delusion Type: Other (some bizarre ideation but no waldo delusions) Suicidal: Ideation (Denies SI) Homicidal: Ideation (Denies HI) Insight/Judgment Chronically poor Remarks Besides the resting hand tremor, no motor abnormalities noted. No dystonias or dyskinesias noted. Thought process fairly linear, a little perseverative on discharge. Grooming and hygiene fair. Labs Labs reviewed. It appears that the patient refused his CBC this morning. Vitals/IOs Vital Signs Date Time Temp Pulse Resp B/P Pulse Ox O2 Delivery O2 Flow Rate FiO2 10/20/16 05:55 97.5 66 18 154/99 98 10/17/16 06:05 Room Air Assessment & Plan Problem List: (1) Paranoid type schizophrenia, chronic state ICD Code: F20.0 Assessment & Plan Administer Haldol Decanoate 100 mg IM tomorrow. Patient would likely benefit from additional Haldol Decanoate after the weekend to bring the total dose to at least 10 times the oral daily dose. Titrate Cogentin to 2 mg twice daily to target EPS. Continually to as ordered. Continue to monitor on the inpatient unit. Continue other medications and care as ordered. Justification for Cont. Inpt. Medication changes in process. Risk for decompensation pending psychiatric stabilization. Discharge Planning Possible discharge to [facility] beginning of next week barring some clinical deterioration. Request HC Surrog/Guard Advoc?: Yes Francisco Iniguez MD Oct 20, 2016 12:18
[2016-10-20] MEDS: POTASSIUM CHLORIDE 25 MEQ EFFERVESCENT TAB PO SCH ×2 (16:00→20:12)
[2016-10-20] MEDS: LURASIDONE 40 MG TAB PO SCH (17:00)
[2016-10-20] MEDS: cloNIDine HCL 0.1 MG TAB PO PRN (17:00)
[2016-10-20 17:50] VITALS: BP 174/104; PULSE 82; RESP 18; TEMP 97.5; O2SAT 97
[2016-10-20 18:06] VITALS: BP 137/86; PULSE 70
[2016-10-20] MEDS: BENZTROPINE MESYLATE 2 MG TAB PO SCH (20:09)
[2016-10-20] MEDS: DOXAZOSIN MESYLATE 2 MG TAB PO SCH (20:14)
[2016-10-21 05:48] VITALS: BP 152/98; PULSE 55; RESP 18; TEMP 97; O2SAT 99
[2016-10-21] MEDS ORDERED: HALOPERIDOL DECANOATE 50 MG/ML VIAL IM ONE (09:00)
[2016-10-21] MEDS: BENZTROPINE MESYLATE 2 MG TAB PO SCH ×2 (09:21→21:00)
[2016-10-21] MEDS: LITHIUM CARBONATE 300 MG CAP PO SCH ×2 (09:21→21:00)
[2016-10-21] MEDS: HYDROCHLOROTHIAZIDE 25 MG TAB PO SCH (09:21)
[2016-10-21] MEDS: HALOPERIDOL 10 MG TAB PO SCH ×4 (09:21→21:00)
--- NOTE | 2016-10-21 12:48 | HHI.PR ---
Subjective Remarks Patient appears in nad. He is walking in the hallways. His BP is noted elevated. Denies any headache or change in vision. No motor deficit. No n/v/d/c. Denies chest pain sob, n/v/d/c. Objective Vitals Vital Signs Date Time Temp Pulse Resp B/P Pulse Ox O2 Delivery O2 Flow Rate FiO2 10/21/16 05:48 97.0 55 18 152/98 99 10/20/16 18:06 70 137/86 10/20/16 17:50 97.5 82 18 174/104 97 Result Diagram: 10/19/1661910/19/16619 Objective Remarks GENERAL: This is a well-nourished, well-developed patient, in no apparent distress. CARDIOVASCULAR: Regular rate and rhythm without murmurs, gallops, or rubs. RESPIRATORY: Clear to auscultation. Breath sounds equal bilaterally. No wheezes , rales, or rhonchi. GASTROINTESTINAL: Abdomen soft, non-tender, nondistended. No hepato-splenomegaly , or palpable masses. No guarding. MUSCULOSKELETAL: Extremities without clubbing, cyanosis, or edema. Right hand tremors. NEUROLOGICAL: Awake and alert. Oriented to person, place. Motor and sensory grossly within normal limits. Normal speech. A/P Problem List: (1) Paranoid type schizophrenia, chronic state ICD Code: F20.0 Status: Acute (2) HTN (hypertension) ICD Code: I10 Status: Acute Assessment and Plan Patient is a 61-year-old male with primary medical history of hypertension, schizophrenia who came into the hospital secondary to schizophrenic symptoms. As per review of records, patient is brought in under [place] act by local police. He is now admitted to inpatient psychiatry unit for further evaluation. Consulted for medical management. Paranoid schizophrenia- Managed by psychiatry team HTN, accelerated/uncontrolled Increase home medications amlodipine to 10 mg daily. Increased hydrochlorothiazide to 50 mg daily PRN hydralazine po 10 mg qid if SBP>160 Doxasozin 4mg PRN SBP > 160, DBP >90 Monitor BP trend. Adjust meds as need. Anemia, normocytic normochromic Possibly from chronic disease Check iron panel, ferritin study normal .HGB at baseline. May supplement with iron if necessary Hypokalemia Potassium replacement. Monitor and replace as need. Recheck BMP DVT prop ambulatory Thank you for this consultation. We will follow patient with you. Code Status Full code Discussed Condition With Patient, nurse. Luci Louis MD Oct 21, 2016 12:48
[2016-10-21] MEDS ORDERED: hydrALAZINE HCL 10 MG TAB PO PRN (13:00)
[2016-10-21] MEDS: LURASIDONE 40 MG TAB PO SCH (17:05)
--- NOTE | 2016-10-21 17:53 | HHI.PYPN ---
Subjective Remarks Patient was seen and case discussed with nursing. Patient is hyperverbal with slurred speech and difficult to understand. He remains internally preoccupied. He has voices taunting him accusing him of being mar. He is tolerating his medications well. Denies suicidal ideation intent or plan Objective Alert: Yes [place]: Person, Place Mood: Anxious Affect: Restricted Memory Intact: Comment (Not assessed) Hallucinations: Other (messages telling him that he is mar) Delusions: No Delusion Type: Other (some bizarre ideation but no waldo delusions) Suicidal: Ideation (Denies SI) Homicidal: Ideation (Denies HI) Insight/Judgment Poor Vitals/IOs Vital Signs Date Time Temp Pulse Resp B/P Pulse Ox O2 Delivery O2 Flow Rate FiO2 10/21/16 05:48 97.0 55 18 152/98 99 Assessment & Plan Problem List: (1) Paranoid type schizophrenia, chronic state ICD Code: F20.0 Assessment & Plan Continue current treatment plan Justification for Cont. Inpt. Patient will decompensate in a less restrictive setting Request HC Surrog/Guard Advoc?: Yes Dean Michaels DO Oct 21, 2016 17:53
[2016-10-21 17:55] VITALS: BP 152/93; PULSE 68; RESP 18; TEMP 97.9; O2SAT 95
--- NOTE | 2016-10-21 18:31 | HHI.PYPN ---
Subjective Remarks Patient was seen and case discussed with nursing. During the interview patient is responding to internal stimuli and mostly ignores the questions and answers inappropriately. Per nursing is paranoid with medications. Discloses thoughts that someone is following him. Objective Alert: Yes [place]: Person Mood: Calm Affect: Blunted Memory Intact: Comment (Not assessed) Hallucinations: Other (not elicited) Delusions: No Delusion Type: Paranoid (someone is following him) Suicidal: Ideation (Denies SI) Homicidal: Ideation (Denies HI) Insight/Judgment Poor Vitals/IOs Vital Signs Date Time Temp Pulse Resp B/P Pulse Ox O2 Delivery O2 Flow Rate FiO2 10/21/16 17:55 97.9 68 18 152/93 95 Assessment & Plan Problem List: (1) Paranoid type schizophrenia, chronic state ICD Code: F20.0 Assessment & Plan Continue current treatment plan Justification for Cont. Inpt. Patient will decompensate in a less restrictive setting Request HC Surrog/Guard Advoc?: Yes Dean Michaels DO Oct 21, 2016 18:31
[2016-10-21] MEDS: DOXAZOSIN MESYLATE 2 MG TAB PO SCH (21:00)
[2016-10-21] MEDS: diphenhydrAMINE HCL 50 MG CAP PO PRN (21:17)
[2016-10-21] MEDS: ACETAMINOPHEN 325 MG TAB PO PRN (21:30)
[2016-10-22 03:56] VITALS: BP 164/104; PULSE 69
[2016-10-22] MEDS: cloNIDine HCL 0.1 MG TAB PO PRN (03:57)
[2016-10-22] MEDS: diphenhydrAMINE HCL 50 MG CAP PO PRN ×2 (03:58→20:46)
[2016-10-22 05:14] VITALS: BP 131/72; PULSE 54; RESP 18
[2016-10-22 05:35] VITALS: BP 131/72; PULSE 70; RESP 17; TEMP 97.6; O2SAT 99
[2016-10-22] MEDS: HALOPERIDOL 10 MG TAB PO SCH ×4 (08:42→20:45)
[2016-10-22] MEDS: HYDROCHLOROTHIAZIDE 50 MG TAB PO SCH (08:42)
[2016-10-22] MEDS: LITHIUM CARBONATE 300 MG CAP PO SCH ×2 (08:43→20:46)
[2016-10-22] MEDS: BENZTROPINE MESYLATE 2 MG TAB PO SCH ×2 (08:43→20:46)
--- NOTE | 2016-10-22 11:48 | HHI.PR ---
Subjective Remarks Follow-up visit HTN, anemia, hypokalemia. Patient seen and examined today. He is yelling and screaming in his room saying "I have the right to refuse, have the right to refuse I want to get out of here." Staff was not expected to the patient that he needs his blood to be drawn to be sent to the labs for interpretation. Patient is adamant that he doesn't want to have labs drawn. Spoke with patient and finally he calmed down. He states his doing okay but he doesn't need blood drawn. Spoke with the staff to skip the patient from blood draw for now will try it again tomorrow. Denies pain and discomfort. Denies SOB / dyspnea. Denies chest pain, palpitations, headaches, dizziness. Denies fevers , chills, n/v/d. Denies dysuria. Objective Vitals Vital Signs Date Time Temp Pulse Resp B/P Pulse Ox O2 Delivery O2 Flow Rate FiO2 10/22/16 05:35 97.6 70 17 131/72 99 10/22/16 05:14 54 18 131/72 10/22/16 03:56 69 164/104 10/21/16 17:55 97.9 68 18 152/93 95 Result Diagram: 10/19/1661910/19/1620 Objective Remarks GENERAL: This is a well-nourished, well-developed patient, in no apparent distress. SKIN: Warm and dry HEAD: Atraumatic. Normocephalic. No temporal or scalp tenderness. EYES: Pupils equal round and reactive. No scleral icterus. No injection or drainage. ENT: Nose without bleeding. Throat without erythema. Uvula midline. Airway patent. NECK: Trachea midline. No JVD or lymphadenopathy. Supple, nontender, no meningeal signs. CARDIOVASCULAR: Regular rate and rhythm without murmurs, gallops, or rubs. RESPIRATORY: Clear to auscultation. Breath sounds equal bilaterally. No wheezes , rales, or rhonchi. GASTROINTESTINAL: Abdomen soft, non-tender, nondistended. No hepato-splenomegaly , or palpable masses. No guarding. MUSCULOSKELETAL: Extremities without clubbing, cyanosis, or edema. Right hand tremors. NEUROLOGICAL: Awake and alert. Oriented to person, place. Motor and sensory grossly within normal limits. Normal speech. A/P Problem List: (1) Paranoid type schizophrenia, chronic state ICD Code: F20.0 Status: Acute (2) HTN (hypertension) ICD Code: I10 Status: Acute Assessment and Plan Patient is a 61-year-old male with primary medical history of hypertension, schizophrenia who came into the hospital secondary to schizophrenic symptoms. As per review of records, patient is brought in under [place] act by local police. He is now admitted to inpatient psychiatry unit for further evaluation. Consulted for medical management. Paranoid schizophrenia - Managed by psychiatry team HTN, accelerated - Restart home medications amlodipine 10 mg daily, increase hydrochlorothiazide 50 mg daily, doxazosin 2 mg daily at bedtime - Doxasozin 4mg PRN SBP > 160, DBP >90, hydralazine 10 mg every 6 hours when necessary - BP trend improving - Monitor BP trend Anemia, normocytic normochromic - Possibly from chronic disease - Not iron deficient - Improved Hypokalemia - Potassium replacement - Recheck BMP - Patient has been abusing labs. Agitated and anxious for most times. We' ll recheck labs and try again tomorrow. However patient does not appear to have any symptomatology. DVT prop ambulatory Discussed with patient, nursing Stable from Hospitalist standpoint. We will sign off once potassium is within normal. Huber Kinney Oct 22, 2016 11:47
--- NOTE | 2016-10-22 15:09 | HHI.PYPN ---
Subjective Remarks Patient was seen and case discussed with nursing. Patient remains paranoid and internally stimulated. He was fearful this morning and refused his lab work. Thought process is loose. Compliant with medications and behaving well on the unit. Objective Alert: Yes [place]: Person Mood: Calm Affect: Restricted Memory Intact: Comment (Not assessed) Hallucinations: Other (not elicited) Delusions: No Delusion Type: Paranoid (internally stimulated) Suicidal: Ideation (Denies SI) Homicidal: Ideation (Denies HI) Insight/Judgment Poor Vitals/IOs Vital Signs Date Time Temp Pulse Resp B/P Pulse Ox O2 Delivery O2 Flow Rate FiO2 10/22/16 05:35 97.6 70 17 131/72 99 Assessment & Plan Problem List: (1) Paranoid type schizophrenia, chronic state ICD Code: F20.0 Assessment & Plan Continue current treatment plan Justification for Cont. Inpt. Patient will decompensate in a less restrictive setting Request HC Surrog/Guard Advoc?: Yes Dean Michaels DO Oct 22, 2016 15:09
[2016-10-22] MEDS: LURASIDONE 40 MG TAB PO SCH (18:00)
[2016-10-22 18:12] VITALS: BP 123/97; PULSE 107; RESP 18; TEMP 98.4; O2SAT 98
[2016-10-22] MEDS: DOXAZOSIN MESYLATE 2 MG TAB PO SCH (20:46)
[2016-10-23 05:54] VITALS: BP 149/90; PULSE 67; RESP 17; TEMP 97.4; O2SAT 100
[2016-10-23] MEDS: LITHIUM CARBONATE 300 MG CAP PO SCH ×2 (08:51→20:20)
[2016-10-23] MEDS: HYDROCHLOROTHIAZIDE 50 MG TAB PO SCH (08:51)
[2016-10-23] MEDS: HALOPERIDOL 10 MG TAB PO SCH ×4 (08:51→20:20)
[2016-10-23] MEDS: BENZTROPINE MESYLATE 2 MG TAB PO SCH ×2 (08:51→20:20)
--- NOTE | 2016-10-23 12:47 | HHI.PYPN ---
Subjective Remarks No change. Still internally preoccupied. Spoke with nurse about patient's behavior. Review of Systems Except as stated in HPI: all other systems reviewed are Neg Objective Alert: Yes [place]: Person Mood: Calm Affect: Restricted Memory Intact: Comment (Not assessed) Hallucinations: Auditory, Other (not elicited) Delusions: No Delusion Type: Paranoid (internally stimulated) Suicidal: Ideation (Denies SI) Homicidal: Ideation (Denies HI) Insight/Judgment Impaired Vitals/IOs Vital Signs Date Time Temp Pulse Resp B/P Pulse Ox O2 Delivery O2 Flow Rate FiO2 10/23/16 05:54 97.4 67 17 149/90 100 Assessment & Plan Problem List: (1) Paranoid type schizophrenia, chronic state ICD Code: F20.0 Assessment & Plan Estimated LOS: days continue to wait for response from Haldol and Latuda Justification for Cont. Inpt. Psychotic and unable to care for self Request HC Surrog/Guard Advoc?: Yes Wilfrid Fernandez MD Oct 23, 2016 12:47
[2016-10-23] MEDS: LURASIDONE 40 MG TAB PO SCH (18:00)
[2016-10-23] MEDS: diphenhydrAMINE HCL 50 MG CAP PO PRN (20:20)
[2016-10-23] MEDS: DOXAZOSIN MESYLATE 2 MG TAB PO SCH (21:42)
[2016-10-24 05:45] VITALS: BP 101/63; PULSE 82; RESP 16; O2SAT 97
[2016-10-24 07:22] LABS: BICARBONATE 28.2 MEQ/L (21.0-32.0); POTASSIUM 3.2 MEQ/L (3.5-5.1)
[2016-10-24] MEDS: LITHIUM CARBONATE 300 MG CAP PO SCH ×2 (08:25→21:25)
[2016-10-24] MEDS: BENZTROPINE MESYLATE 2 MG TAB PO SCH ×2 (08:25→21:25)
[2016-10-24] MEDS: HALOPERIDOL 10 MG TAB PO SCH ×4 (08:25→21:25)
[2016-10-24] MEDS: HYDROCHLOROTHIAZIDE 50 MG TAB PO SCH (08:25)
[2016-10-24] MEDS ORDERED: POTASSIUM CHLORIDE 10 MEQ CONTROLLED RELEASE TAB PO ONE (08:45)
--- NOTE | 2016-10-24 11:11 | HHI.PYPN ---
Subjective Remarks Patient remains psychotic with delusions and prominent loose associations. He is unable to have a meaningful or cogent conversation. Case discussed with nurse. Will continue antipsychotic therapy and provide more time for patient to respond. Review of Systems Except as stated in HPI: all other systems reviewed are Neg Objective Alert: Yes [place]: Person Mood: Anxious, Calm Affect: Restricted Memory Intact: Comment (Not assessed) Hallucinations: Auditory, Other (not elicited) Delusions: No Delusion Type: Paranoid (internally stimulated) Suicidal: Ideation (Denies SI) Homicidal: Ideation (Denies HI) Insight/Judgment Impaired Labs Test 10/24/16 06:28 Sodium Level 140 MEQ/L Potassium Level 3.2 MEQ/L Chloride Level 104 MEQ/L Carbon Dioxide Level 28.2 MEQ/L Anion Gap 8 MEQ/L Blood Urea Nitrogen 13 MG/DL Creatinine 1.10 MG/DL Estimat Glomerular Filtration 82 ML/MIN Rate Random Glucose 97 MG/DL Calcium Level 9.5 MG/DL Vitals/IOs Vital Signs Date Time Temp Pulse Resp B/P Pulse Ox O2 Delivery O2 Flow Rate FiO2 10/24/16 05:45 82 16 101/63 97 10/23/16 05:54 97.4 Intake and Output 10/23/16 10/23/16 10/24/16 08:00 16:00 00:00 Intake Total 480 ml Balance 480 ml Assessment & Plan Problem List: (1) Paranoid type schizophrenia, chronic state ICD Code: F20.0 Assessment & Plan Estimated LOS: days patient continues to require more time to respond to antipsychotic therapy. Justification for Cont. Inpt. Unable to care for self at lower level of care Request HC Surrog/Guard Advoc?: Yes Wilfrid Fernandez MD Oct 24, 2016 11:11
--- NOTE | 2016-10-24 13:30 | HHI.PR ---
Subjective Remarks Follow-up visit on patient with HTN, anemia, hypokalemia. Patient seen and examined today. Patient states he is doing well. He denies any complaints. Denies any pain or discomfort. Denies any fever, chills, dizziness, headaches, N/V, chest pain, SOB or abdominal pain. Denies any urinary problems, diarrhea or constipation. Objective Vitals Vital Signs Date Time Temp Pulse Resp B/P Pulse Ox O2 Delivery O2 Flow Rate FiO2 10/24/16 05:45 82 16 101/63 97 I/O 10/23/16 10/23/16 10/23/16 10/24/16 10/24/16 10/24/16 07:00 15:00 23:00 07:00 15:00 23:00 Intake Total 480 ml 360 ml Balance 480 ml 360 ml Intake Oral 480 ml 360 ml # Voids 2 # Bowel Movements 0 Result Diagram: 10/24/16 0628 Objective Remarks GENERAL: This is a well-nourished, well-developed patient, in no apparent distress. Awake and alert. Sitting on hospital bed. SKIN: Warm and dry HEENT: Atraumatic. Normocephalic. EOMI. MMM. CARDIOVASCULAR: Regular rate and rhythm without murmurs, gallops, or rubs. RESPIRATORY: Clear to auscultation. Breath sounds equal bilaterally. No wheezes , rales, or rhonchi. GASTROINTESTINAL: Abdomen soft, non-tender, nondistended. No hepato-splenomegaly , or palpable masses. No guarding. MUSCULOSKELETAL: Extremities without clubbing, cyanosis, or edema. Right hand tremors. NEUROLOGICAL: Awake and alert. Oriented to person, place. Motor and sensory grossly within normal limits. Normal speech. Medications and IVs Current Medications Medications (Trade) Dose Ordered Sig/Beverly Route Start Time Stop Time Status Last Admin (Cardura) 4 mg DAILY PRN PO 10/17/16 12:00 10/19/16 05:55 ([place] Carbonate) 300 mg BID PO 10/17/16 21:00 10/24/16 08:25 (Ativan) 1 mg Q6H PRN PO 10/17/16 12:15 (Ativan Inj) 1 mg Q6H PRN IM 10/17/16 12:15 (Benadryl) 50 mg HS PRN PO 10/17/16 12:15 10/23/16 20:20 (Tylenol) 650 mg Q4H PRN PO 10/17/16 12:15 10/21/16 21:30 (Milk Of Magnesia Liq) 30 ml DAILY PRN PO 10/17/16 12:15 (Mag-Al Plus Susp Liq) 30 ml Q6H PRN PO 10/17/16 12:15 (Cogentin) 1 mg Q12H PRN PO 10/17/16 12:15 (Cogentin Inj) 1 mg Q12H PRN IM 10/17/16 12:15 (Catapres) 0.1 mg Q8HR PRN PO 10/17/16 12:15 10/22/16 03:57 (Haldol) 10 mg QID PO 10/18/16 13:00 10/24/16 12:34 (Haldol Inj) 10 mg QID PRN IM 10/18/16 13:00 (Norvasc) 10 mg DAILY PO 10/19/16 09:00 10/23/16 08:51 (Cardura) 2 mg HS PO 10/20/16 21:00 10/23/16 21:42 (Cogentin) 2 mg BID PO 10/20/16 21:00 10/24/16 08:25 (Hydrodiuril) 50 mg DAILY PO 10/22/16 09:00 10/23/16 08:51 (Apresoline) 10 mg Q6HR PRN PO 10/21/16 13:00 A/P Problem List: (1) Paranoid type schizophrenia, chronic state ICD Code: F20.0 Status: Acute (2) HTN (hypertension) ICD Code: I10 Status: Acute Assessment and Plan Patient is a 61-year-old male with primary medical history of hypertension, schizophrenia who came into the hospital secondary to schizophrenic symptoms. As per review of records, patient is brought in under [place] act by local police. He is now admitted to inpatient psychiatry unit for further evaluation. Consulted for medical management. Paranoid schizophrenia - Managed by psychiatry team HTN, accelerated - Patient on amlodipine 10 mg daily, hydrochlorothiazide 50 mg daily, doxazosin 2 mg daily at bedtime - HCTZ increased this admission. Currently Norvasc and HCTZ on hold due to hypotension - Doxasozin 4mg PRN SBP > 160, DBP >90, hydralazine 10 mg every 6 hours when necessary - Monitor BP trend Neutropenia - white count 3.6 - repeat CBC to monitor trend Hypokalemia - persistent despite repletion - K 3.2 - check mag level - replete and recheck BMP DVT prophylaxis: patient is ambulatory Discussed with patient, nursing staff and Lulu Harden Oct 24, 2016 13:30
[2016-10-24] MEDS: LURASIDONE 40 MG TAB PO SCH (17:10)
[2016-10-24 18:31] VITALS: BP 111/68; PULSE 80; RESP 17; O2SAT 98
[2016-10-24] MEDS: DOXAZOSIN MESYLATE 2 MG TAB PO SCH (21:25)
[2016-10-24] MEDS: diphenhydrAMINE HCL 50 MG CAP PO PRN (21:25)
[2016-10-25 04:41] VITALS: BP 168/97; PULSE 61; RESP 17; TEMP 97.5
[2016-10-25] MEDS: BENZTROPINE MESYLATE 2 MG TAB PO SCH ×2 (09:14→22:09)
[2016-10-25] MEDS: LITHIUM CARBONATE 300 MG CAP PO SCH ×2 (09:15→22:10)
[2016-10-25] MEDS: HALOPERIDOL 10 MG TAB PO SCH ×4 (09:15→22:10)
[2016-10-25] MEDS: HYDROCHLOROTHIAZIDE 50 MG TAB PO SCH (09:15)
[2016-10-25 10:26] LABS: AUTOMATED NEUTROPHIL # 3.1 TH/MM3 (1.8-7.7); BASOPHIL % 0.5 % (0.0-2.0); EOSINOPHIL # 0.1 TH/MM3 (0-0.4); HEMATOCRIT 40.4 % (39.0-51.0); HEMO FLAGS DIFF FINAL; LYMPH % 20.2 % (9.0-44.0); LYMPHOCYTE # 0.9 TH/MM3 (1.0-4.8); MEAN CELL VOLUME 93.6 FL (80.0-100.0); MEAN CORPUSCULAR HEMOGLOBIN 31.3 PG (27.0-34.0); MEAN CORPUSCULAR HGB CONC 33.5 % (32.0-36.0); NEUT % 69.3 % (16.0-70.0); PLATELET COUNT 192 TH/MM3 (150-450); RED BLOOD COUNT 4.32 MIL/MM3 (4.50-5.90); RED CELL DISTRIBUTION WIDTH 13.1 % (11.6-17.2); WHITE BLOOD COUNT 4.5 TH/MM3 (4.0-11.0)
[2016-10-25 10:43] LABS: BICARBONATE 23.6 MEQ/L (21.0-32.0); MAGNESIUM 2.3 MG/DL (1.5-2.5); POTASSIUM 3.3 MEQ/L (3.5-5.1)
[2016-10-25] MEDS ORDERED: POTASSIUM CHLORIDE 10 MEQ CONTROLLED RELEASE TAB PO ONE (11:45)
[2016-10-25] MEDS: LURASIDONE 40 MG TAB PO SCH (17:00)
[2016-10-25 18:00] VITALS: BP 142/89; PULSE 70; RESP 17; TEMP 98.2; O2SAT 98
[2016-10-25] MEDS: DOXAZOSIN MESYLATE 2 MG TAB PO SCH (22:09)
[2016-10-25] MEDS: diphenhydrAMINE HCL 50 MG CAP PO PRN (22:10)
[2016-10-26 06:18] VITALS: PULSE 83; RESP 20; TEMP 98; O2SAT 96
[2016-10-26] MEDS: HYDROCHLOROTHIAZIDE 50 MG TAB PO SCH (08:47)
[2016-10-26] MEDS: LITHIUM CARBONATE 300 MG CAP PO SCH ×2 (08:47→21:40)
[2016-10-26] MEDS: BENZTROPINE MESYLATE 2 MG TAB PO SCH ×2 (08:47→21:40)
[2016-10-26] MEDS: HALOPERIDOL 10 MG TAB PO SCH ×4 (08:47→21:40)
--- NOTE | 2016-10-26 09:54 | HHI.PYPN ---
Subjective Remarks This is the progress note for October 25, 2016. Patient continues to be talking to himself, mumbling and demonstrating loose associations. Chart reviewed and case discussed with nurse. Patient continues to require more time on antipsychotic therapy. Review of Systems Except as stated in HPI: all other systems reviewed are Neg Objective Alert: Yes [place]: Person Mood: Anxious, Calm Affect: Restricted Memory Intact: Comment (Not assessed) Hallucinations: Auditory, Other (not elicited) Delusions: No Delusion Type: Paranoid (internally stimulated) Suicidal: Ideation (Denies SI) Homicidal: Ideation (Denies HI) Insight/Judgment Impaired Vitals/IOs Vital Signs Date Time Temp Pulse Resp B/P Pulse Ox O2 Delivery O2 Flow Rate FiO2 10/26/16 06:18 98.0 83 20 96 10/25/16 18:00 142/89 Intake and Output 10/25/16 10/25/16 10/26/16 08:00 16:00 00:00 Intake Total 480 ml 840 ml Balance 480 ml 840 ml Assessment & Plan Problem List: (1) Paranoid type schizophrenia, chronic state ICD Code: F20.0 Assessment & Plan Estimated LOS: days patient only partially responding to antipsychotic therapy. Requires more time to improve. Justification for Cont. Inpt. Likely to decompensate at lower level of care. Request HC Surrog/Guard Advoc?: Yes Wilfrid Fernandez MD Oct 26, 2016 09:54
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
[2016-10-26] MEDS ORDERED: POTASSIUM CHLORIDE 10 MEQ CONTROLLED RELEASE TAB PO ONE (16:30)
[2016-10-26] MEDS: LURASIDONE 40 MG TAB PO SCH (18:25)
[2016-10-26 19:19] VITALS: BP 116/56; PULSE 77; RESP 18; TEMP 98.6; O2SAT 96
[2016-10-26] MEDS: DOXAZOSIN MESYLATE 2 MG TAB PO SCH (21:40)
[2016-10-26] MEDS: diphenhydrAMINE HCL 50 MG CAP PO PRN (21:40)
[2016-10-27 06:06] VITALS: BP 126/84; PULSE 86; RESP 18; TEMP 99.1; O2SAT 99
[2016-10-27] MEDS ORDERED: HALOPERIDOL DECANOATE 50 MG/ML VIAL IM ONE (09:00)
[2016-10-27] MEDS: HYDROCHLOROTHIAZIDE 50 MG TAB PO SCH (09:00)
[2016-10-27] MEDS: HALOPERIDOL 10 MG TAB PO SCH ×4 (09:16→20:30)
[2016-10-27] MEDS: BENZTROPINE MESYLATE 2 MG TAB PO SCH ×2 (09:16→18:00)
[2016-10-27] MEDS: LITHIUM CARBONATE 300 MG CAP PO SCH ×2 (09:16→20:30)
--- NOTE | 2016-10-27 10:48 | HHI.PYPN ---
Subjective Remarks Patient seen and examined. Chart reviewed. Case discussed with nurse. Case discussed with counselor. Per nursing staff, patient discharged focused but no other real behavioral problem. On my examination today, the patient remains quite discharge focused. He asks "are you gonna let me go home?" He denies audiovisual hallucinations but appears a little internally preoccupied. He is paranoid regarding his ongoing hospitalization and says "my family is doing this to me." He denies suicidal ideation but acknowledges homicidal ideation against someone named Doug and another gentleman named Josep Scanlon, both of whom the patient apparently knows from outside of the hospital. Denies side effects from medications. No physical complaints. Review of Systems ROS Limitations: Psychotic, Poor Historian Objective Alert: Yes [place]: Person, Place Mood: Other (somewhat irritable) Affect: Restricted Memory Intact: Comment (Not assessed) Hallucinations: Other (denies AVH) Delusions: Yes Delusion Type: Paranoid Suicidal: Ideation (denies SI) Homicidal: Ideation (verbalizes HI, see above. No reported urge to hurt people on the unit.) Insight/Judgment Poor Remarks Mild resting hand tremor. No other motor abnormalities noted. Grooming and hygiene fair. Thought process perseverative on discharge. Labs Labs reviewed. It appears that patient refused laboratories this morning. Vitals/IOs Vital Signs Date Time Temp Pulse Resp B/P Pulse Ox O2 Delivery O2 Flow Rate FiO2 10/27/16 06:06 99.1 86 18 126/84 99 Intake and Output 10/26/16 10/26/16 10/27/16 08:00 16:00 00:00 Intake Total 480 ml 480 ml Balance 480 ml 480 ml Assessment & Plan Problem List: (1) Paranoid type schizophrenia, chronic state ICD Code: F20.0 Assessment & Plan Patient remains somewhat symptomatic with respect to his psychosis. He received a booster dose of Haldol Decanoate this morning to bring his total dose to 300 mg IM. Continue oral Haldol supplementation through the weekend and monitor on the inpatient unit. Continue other psychotropics as ordered. I will gently titrate his Cogentin. Continue other medications and care as ordered. Justification for Cont. Inpt. Concern for impairment in safety. Impairment in reality construction. High risk for decompensation in a less restrictive environment. Discharge Planning Pending psychiatric stabilization. Hopefully, the patient's psychosis will be improved after the weekend and we could consider discharge beginning of next week. Request HC Surrog/Guard Advoc?: Yes Francisco Iniguez MD Oct 27, 2016 10:48
--- NOTE | 2016-10-27 14:04 | HHI.PR ---
Subjective Remarks Follow-up visit on patient with HTN, anemia, hypokalemia. Patient seen and examined today. Patient states he is doing well. Denies any acute medical complaints. Objective Vitals Vital Signs Date Time Temp Pulse Resp B/P Pulse Ox O2 Delivery O2 Flow Rate FiO2 10/27/16 06:06 99.1 86 18 126/84 99 10/26/16 19:19 98.6 77 18 116/56 96 I/O 10/26/16 10/26/16 10/26/16 10/27/16 10/27/16 10/27/16 07:00 15:00 23:00 07:00 15:00 23:00 Intake Total 480 ml 480 ml 240 ml Balance 480 ml 480 ml 240 ml Intake Oral 480 ml 240 ml Oral Supplement 480 ml # Voids 4 Result Diagram: 10/25/16 0600 10/25/16 0824 Objective Remarks GENERAL: This is a well-nourished, well-developed patient, in no apparent distress. Awake and alert. Lying on hospital bed. SKIN: Warm and dry HEENT: Atraumatic. Normocephalic. EOMI. MMM. CARDIOVASCULAR: Regular rate and rhythm without murmurs, gallops, or rubs. RESPIRATORY: Clear to auscultation. Breath sounds equal bilaterally. No wheezes , rales, or rhonchi. GASTROINTESTINAL: Abdomen soft, non-tender, nondistended. No hepato-splenomegaly , or palpable masses. No guarding. MUSCULOSKELETAL: Extremities without clubbing, cyanosis, or edema. Right hand tremors. NEUROLOGICAL: Awake and alert. Oriented to person, place. Motor and sensory grossly within normal limits. Normal speech. Medications and IVs Current Medications Medications (Trade) Dose Ordered Sig/Beverly Route Start Time Stop Time Status Last Admin (Cardura) 4 mg DAILY PRN PO 10/17/16 12:00 10/19/16 05:55 ([place] Carbonate) 300 mg BID PO 10/17/16 21:00 10/27/16 09:16 (Ativan) 1 mg Q6H PRN PO 10/17/16 12:15 (Ativan Inj) 1 mg Q6H PRN IM 10/17/16 12:15 (Benadryl) 50 mg HS PRN PO 10/17/16 12:15 10/26/16 21:40 (Tylenol) 650 mg Q4H PRN PO 10/17/16 12:15 10/21/16 21:30 (Milk Of Magnesia Liq) 30 ml DAILY PRN PO 10/17/16 12:15 (Mag-Al Plus Susp Liq) 30 ml Q6H PRN PO 10/17/16 12:15 (Cogentin) 1 mg Q12H PRN PO 10/17/16 12:15 (Cogentin Inj) 1 mg Q12H PRN IM 10/17/16 12:15 (Catapres) 0.1 mg Q8HR PRN PO 10/17/16 12:15 10/22/16 03:57 (Haldol) 10 mg QID PO 10/18/16 13:00 10/27/16 12:25 (Haldol Inj) 10 mg QID PRN IM 10/18/16 13:00 (Norvasc) 10 mg DAILY PO 10/19/16 09:00 10/27/16 09:16 (Cardura) 2 mg HS PO 10/20/16 21:00 10/26/16 21:40 (Cogentin) 2 mg BID PO 10/20/16 21:00 10/27/16 09:16 (Hydrodiuril) 50 mg DAILY PO 10/22/16 09:00 10/27/16 09:00 (Apresoline) 10 mg Q6HR PRN PO 10/21/16 13:00 10/25/16 05:34 A/P Problem List: (1) Paranoid type schizophrenia, chronic state ICD Code: F20.0 Status: Acute (2) HTN (hypertension) ICD Code: I10 Status: Acute Assessment and Plan Patient is a 61-year-old male with primary medical history of hypertension, schizophrenia who came into the hospital secondary to schizophrenic symptoms. As per review of records, patient is brought in under [place] act by local police. He is now admitted to inpatient psychiatry unit for further evaluation. Consulted for medical management. Paranoid schizophrenia - Managed by psychiatry team HTN, accelerated - BP controlled - Patient on amlodipine 10 mg daily, hydrochlorothiazide 50 mg daily, doxazosin 2 mg daily at bedtime - HCTZ increased this admission. - Doxasozin 4mg PRN SBP > 160, DBP >90, hydralazine 10 mg every 6 hours when necessary - Monitor BP trend Neutropenia - resolved Hypokalemia - K 3.5 - treated with repletion - mag level 2.3 - awaiting todays lab draw DVT prophylaxis: patient is ambulatory Patient appears stable from hospitalist standpoint. Follow up on potassium level. Please reconsult if needed. Discussed with patient and Lulu Harden Oct 27, 2016 14:03
[2016-10-27] MEDS: LURASIDONE 40 MG TAB PO SCH (17:52)
[2016-10-27] MEDS: DOXAZOSIN MESYLATE 2 MG TAB PO SCH (20:30)
[2016-10-28 04:00] VITALS: BP 133/87; PULSE 67; RESP 18; TEMP 97.2; O2SAT 98
[2016-10-28] MEDS: HYDROCHLOROTHIAZIDE 50 MG TAB PO SCH (09:07)
[2016-10-28] MEDS: HALOPERIDOL 10 MG TAB PO SCH ×4 (09:07→20:51)
[2016-10-28] MEDS: BENZTROPINE MESYLATE 2 MG TAB PO SCH ×3 (09:07→17:42)
[2016-10-28] MEDS: LITHIUM CARBONATE 300 MG CAP PO SCH ×2 (09:07→20:51)
--- NOTE | 2016-10-28 16:55 | HHI.PYPN ---
Subjective Remarks Pt seen and discussed with staff. He has been compliant with medications and denies SI. He has been seclusive to his room and has been observed by staff laughing inappropriately and having rambling conversations. Objective Alert: Yes [place]: Person, Place Mood: Other (elevated) Affect: Other (intense stare) Memory Intact: Comment (Not assessed) Hallucinations: Other (denies AVH) Delusions: Yes Delusion Type: Paranoid Suicidal: Ideation (denies SI) Homicidal: Ideation (verbalizes HI, see above. No reported urge to hurt people on the unit.) Insight/Judgment poor Vitals/IOs Vital Signs Date Time Temp Pulse Resp B/P Pulse Ox O2 Delivery O2 Flow Rate FiO2 10/28/16 04:00 97.2 67 18 133/87 98 Intake and Output 10/27/16 10/27/16 10/28/16 08:00 16:00 00:00 Intake Total 240 ml 360 ml 360 ml Balance 240 ml 360 ml 360 ml Assessment & Plan Problem List: (1) Paranoid type schizophrenia, chronic state ICD Code: F20.0 Assessment & Plan Continue current tx plan. Estimated LOS: days Justification for Cont. Inpt. impairments in reality construction Request HC Surrog/Guard Advoc?: Yes Kelly Escoto MD Oct 28, 2016 16:55
[2016-10-28] MEDS: LURASIDONE 40 MG TAB PO SCH (17:43)
[2016-10-28 18:00] VITALS: BP 141/86; PULSE 66; RESP 18; TEMP 98.5; O2SAT 95
[2016-10-28] MEDS: DOXAZOSIN MESYLATE 2 MG TAB PO SCH (20:50)
[2016-10-28] MEDS: diphenhydrAMINE HCL 50 MG CAP PO PRN (20:50)
[2016-10-29 05:46] VITALS: BP 137/92; PULSE 66; RESP 18; TEMP 98.3; O2SAT 99
[2016-10-29] MEDS: LITHIUM CARBONATE 300 MG CAP PO SCH ×2 (08:24→20:42)
[2016-10-29] MEDS: DOXAZOSIN MESYLATE 2 MG TAB PO SCH ×2 (08:24→20:42)
[2016-10-29] MEDS: BENZTROPINE MESYLATE 2 MG TAB PO SCH ×3 (08:24→17:03)
[2016-10-29] MEDS: HALOPERIDOL 10 MG TAB PO SCH ×4 (08:24→20:42)
[2016-10-29] MEDS: HYDROCHLOROTHIAZIDE 50 MG TAB PO SCH (08:28)
--- NOTE | 2016-10-29 13:53 | HHI.PYPN ---
Subjective Remarks Pt seen and discussed with staff. He became agitated during community meeting with RN, yelling "flakocker". He received ativan 1mg PO X1 which calmed pt. He has been calm the rest of the day, but remains disorganized and delusional. No SI/HI Objective Alert: Yes [place]: Person, Place Mood: Other (elevated) Affect: Other (intense stare) Memory Intact: Comment (Not assessed) Hallucinations: Other (denies AVH) Delusions: Yes Delusion Type: Paranoid Suicidal: Ideation (denies SI) Homicidal: Ideation (verbalizes HI, see above. No reported urge to hurt people on the unit.) Insight/Judgment poor Vitals/IOs Vital Signs Date Time Temp Pulse Resp B/P Pulse Ox O2 Delivery O2 Flow Rate FiO2 10/29/16 05:46 98.3 66 18 137/92 99 Intake and Output 10/28/16 10/28/16 10/29/16 08:00 16:00 00:00 Intake Total 480 ml 840 ml Balance 480 ml 840 ml Assessment & Plan Problem List: (1) Paranoid type schizophrenia, chronic state ICD Code: F20.0 Assessment & Plan Continue current tx plan. Estimated LOS: days Justification for Cont. Inpt. impairments in reality construction Request HC Surrog/Guard Advoc?: Yes Kelly Escoto MD Oct 29, 2016 13:53
[2016-10-29] MEDS: LURASIDONE 40 MG TAB PO SCH (17:02)
[2016-10-29] MEDS: diphenhydrAMINE HCL 50 MG CAP PO PRN (20:42)
[2016-10-30 06:17] VITALS: BP 146/100; PULSE 83; RESP 17; TEMP 98.1; O2SAT 95
[2016-10-30] MEDS: HYDROCHLOROTHIAZIDE 50 MG TAB PO SCH (08:41)
[2016-10-30] MEDS: HALOPERIDOL 10 MG TAB PO SCH ×4 (08:41→21:05)
[2016-10-30] MEDS: BENZTROPINE MESYLATE 2 MG TAB PO SCH ×3 (08:41→18:24)
[2016-10-30] MEDS: LITHIUM CARBONATE 300 MG CAP PO SCH ×2 (08:41→21:05)
[2016-10-30 08:51] VITALS: BP 137/89; PULSE 93; RESP 18; TEMP 98.3; O2SAT 98
--- NOTE | 2016-10-30 12:39 | HHI.PYPN ---
Subjective Remarks Patient seen and examined. Chart reviewed. Case discussed with nursing staff. On my examination today, patient remains quite discharge focused. He denies suicidal or homicidal ideation but is irritable. He is unable to tolerate extended questioning. He rambles about "demons" in a fairly psychotic fashion. He appears internally preoccupied. No side effects from medications. No physical complaints. Review of Systems ROS Limitations: Psychotic, Poor Historian Except as stated in HPI: all other systems reviewed are Neg Objective Alert: Yes [place]: Person, Place Mood: Other (dysphoric) Affect: Restricted, Other (irritable) Memory Intact: Comment (Not assessed) Hallucinations: Other (appears internally preoccupied) Delusions: Yes Delusion Type: Paranoid Suicidal: Ideation (denies SI) Homicidal: Ideation (denies HI but is quite irritable) Insight/Judgment Poor Remarks No motor abnormalities noted. Grooming and hygiene fair. Thought process with some loosening of associations. Labs Labs reviewed. Vitals/IOs Vital Signs Date Time Temp Pulse Resp B/P Pulse Ox O2 Delivery O2 Flow Rate FiO2 10/30/16 08:51 98.3 93 18 137/89 98 Intake and Output 10/29/16 10/29/16 10/30/16 08:00 16:00 00:00 Intake Total 960 ml 360 ml Balance 960 ml 360 ml Assessment & Plan Problem List: (1) Paranoid type schizophrenia, chronic state ICD Code: F20.0 Assessment & Plan Inadequate response to Haldol/Latuda combination. Patient remained psychotic and irritable. Discontinue Latuda and initiate Zyprexa 5 mg at bedtime with plans to titrate to effect. Continue oral Haldol supplementing Haldol Decanoate. Continue to monitor on the inpatient unit. Continue other medications and care as ordered. Justification for Cont. Inpt. Medication changes in process. Impairment in reality construction. High risk for decompensation in a less restrictive environment. Discharge Planning Pending psychiatric stabilization. I have asked her counselor to reach out to the patient's sister to explore whether it might not be more prudent for the patient to be placed rather than going back into the home environment. Request HC Surrog/Guard Advoc?: Yes Francisco Iniguez MD Oct 30, 2016 12:39
[2016-10-30] MEDS ORDERED: OLANZapine ODT 5 MG TAB PO SCH (21:00)
[2016-10-30] MEDS: diphenhydrAMINE HCL 50 MG CAP PO PRN (21:05)
[2016-10-30] MEDS: DOXAZOSIN MESYLATE 2 MG TAB PO SCH (21:05)
[2016-10-31 06:42] VITALS: BP 142/92; PULSE 73; RESP 18; TEMP 97.8; O2SAT 97
[2016-10-31] MEDS: HYDROCHLOROTHIAZIDE 50 MG TAB PO SCH (09:30)
[2016-10-31] MEDS: HALOPERIDOL 10 MG TAB PO SCH ×4 (09:30→20:47)
[2016-10-31] MEDS: BENZTROPINE MESYLATE 2 MG TAB PO SCH ×3 (09:30→18:40)
[2016-10-31] MEDS: LITHIUM CARBONATE 300 MG CAP PO SCH ×2 (09:30→20:46)
--- NOTE | 2016-10-31 11:17 | PD.TTN ---
Present for Treatment Team Treatment Team Staff: Provider (Dr. Iniguez), Nurse (Molly), Psych Therapist (FRANCISCO Hall), Occupational Therapist (Dieudonne) Patient Problems 1. Discharge planning 2. Medication compliance 3. Knowledge deficit 4. Lack of coping skills Progress Toward Goals Provider Input: Dr. Iniguez reported he will adjust patient's medication in an effort to curb aggression. Per Dr. Iniguez's request, this counselor will contact patient's sister to discuss discharge plan. Nurse Input: Nurse reported the patient was compliant with his medications this morning. Psych Therapist Input: Counselor reported attempting to contact patient's sister yesterday and having to leave a mesage requesting a return call. Counselor reported witnessing the patient tell nurse Molly that the "[facility] discharged me last week." In an effort to better assist this patient with his mental health treatment his counselor will now be Beny due to patient's irratability and aggression towards this counselor. Occupational Therapist Input: Dieudonne reported the patient is ot participating in recreational groups or activities. Documentation Scribe: FRANCISCO Hall Date Resolved: Oct 31, 2016 Anne Posada Oct 31, 2016 11:16
--- NOTE | 2016-10-31 11:27 | HHI.PYPN ---
Subjective Remarks Patient seen and examined. Chart reviewed. Case discussed in treatment team with nurse, counselor and occupational therapist. Counselor has subsequently reached out the patient's sister with whom he lives, and she feels that he is improving and would be comfortable with his discharge home soon. Occupational therapist notes that the patient has been pleasant and cooperative in groups. On my examination today, the patient says that he is "ready to go. He seems less paranoid and irritable today. He denies any audiovisual hallucinations. He denies any suicidal or homicidal ideation. No reported side effects from medications. No physical complaints. Review of Systems ROS Limitations: Poor Historian Except as stated in HPI: all other systems reviewed are Neg Objective Alert: Yes [place]: Person, Place Mood: Other (calmer) Affect: Restricted, Other (less irritable) Memory Intact: Comment (not formally assessed) Hallucinations: Other (denies AVH) Delusions: No Delusion Type: Other (no delusions noted today) Suicidal: Ideation (denies SI) Homicidal: Ideation (denies HI) Insight/Judgment Poor Remarks No motor abnormalities noted. Grooming and hygiene fair. Labs Labs reviewed. Vitals/IOs Vital Signs Date Time Temp Pulse Resp B/P Pulse Ox O2 Delivery O2 Flow Rate FiO2 10/31/16 06:42 97.8 73 18 142/92 97 Intake and Output 10/30/16 10/30/16 10/31/16 08:00 16:00 00:00 Intake Total 360 ml 1920 ml 720 ml Balance 360 ml 1920 ml 720 ml Assessment & Plan Problem List: (1) Paranoid type schizophrenia, chronic state ICD Code: F20.0 Assessment & Plan Titrate Zyprexa to 7.5mg qHS as this dose is more likely to be therapeutic in the long-term. Patient does seem calmer on this agent versus the Latuda. Continue oral Haldol supplementing Haldol Dec. Continue to monitor on the inpatient unit. Continue other medications and care as ordered. Justification for Cont. Inpt. Discharge planning. Medication changes. Discharge Planning Possible discharge home with sister sometime this week if behaviors remain improved. LONG-TERM placement does represent an alternative, although presently sister wants him home. Request HC Surrog/Guard Advoc?: Yes Francisco Iniguez MD Oct 31, 2016 11:27
--- NOTE | 2016-10-31 12:47 | PD.TTN ---
Present for Treatment Team Treatment Team Staff: Provider (Dr. Iniguez), Nurse, Psych Therapist (Chacha), Occupational Therapist (Dieudonne SAGASTUME) Patient Problems 1. Discharge planning 2. Medication compliance 3. Knowledge deficit 4. Lack of coping skills Progress Toward Goals Provider Input: Dr. Iniguez requested psych counselor to call pt's sister to inquire how pt is doing recently. Psych Therapist Input: This counselor spoke to pt's sister ([facility] [phone]) - per Dr. Iniguez. The sister visited with pt yesterday. Further states pt is "doing much better" and she feels like he is ready to return home - to her residence. Occupational Therapist Input: Attends most groups. Beny Santiago Jr, CONSTRUCTION WORKER Oct 31, 2016 12:47
[2016-10-31] MEDS ORDERED: PILL SPLITTER OTHER PRN (14:00)
[2016-10-31 16:01] VITALS: BP 156/100; PULSE 60; RESP 18; TEMP 97.3
[2016-10-31] MEDS: cloNIDine HCL 0.1 MG TAB PO PRN (20:46)
[2016-10-31] MEDS: DOXAZOSIN MESYLATE 2 MG TAB PO SCH (20:47)
[2016-10-31] MEDS: OLANZapine 5 MG TAB PO SCH (20:47)
[2016-10-31] MEDS: diphenhydrAMINE HCL 50 MG CAP PO PRN (20:47)
[2016-11-01] MEDS: HYDROCHLOROTHIAZIDE 50 MG TAB PO SCH (08:59)
[2016-11-01] MEDS: BENZTROPINE MESYLATE 2 MG TAB PO SCH ×3 (08:59→17:45)
[2016-11-01] MEDS: LITHIUM CARBONATE 300 MG CAP PO SCH ×2 (09:00→20:38)
[2016-11-01] MEDS: HALOPERIDOL 10 MG TAB PO SCH ×4 (09:00→20:38)
[2016-11-01] MEDS ORDERED: AMLO10 PO (13:21)
[2016-11-01] MEDS ORDERED: HALO10TA PO (13:21)
[2016-11-01] MEDS ORDERED: Benztropine PO (13:21)
[2016-11-01] MEDS ORDERED: HALO100P IM (13:21)
[2016-11-01] MEDS ORDERED: OLAN5TAB PO (13:21)
[2016-11-01] MEDS ORDERED: LITH300C2 PO (13:21)
[2016-11-01] MEDS ORDERED: CARD2TAB PO (13:21)
[2016-11-01] MEDS ORDERED: HYDR50TA3 PO (13:21)
--- NOTE | 2016-11-01 13:21 | HHI.DS ---
Psychiatry Discharge Summary Inpatient Psychiatric care?: Yes Advance Directive: No Reason Not Provided: Due to Patient Condition Mental Health AdvanceDirective: No Health Care Proxy: No Admission Admission Date Oct 17, 2016 at 08:11 Admission Diagnosis: (1) Paranoid type schizophrenia, chronic state ICD Code: F20.0 Brief History Mr. Meier is a 61 year-old male with a history of who presents under a [employer] [facility] from [facility] alleging that the patient was delusional, hallucinating and violent in the office. Reviewing the EMR, I see no prior psychiatric contact within our system. Patient seen and examined with RN. Chart reviewed. Case discussed with RN. Patient is uncooperative with interview. He repeatedly demands to be discharged. He wanders away at numerous points in the interview. He appears internally stimulated. He has an irritable edge and angrily throws some magazines around on the table. He will only say that "I just want to sign fo my discharge. It's hell without food, lights, clothes, whatever." Psychiatric interview is limited because of patient uncooperativeness. Placed a call to patient's outpatient provider, EDITH Arroyo [phone]. She was in with a patient. I will try back later. Spoke with patient's sister, Bianca Cortes. Ms. Cortes says patient has lived with her for the last 1.5 years. He was in his usual state of health until 1 week ago when she notes pt began to complain of hearing things. She does not suspect med non-adherence because she supervises med administration. She notes that patient has been fixated lately on going to [place] to be with his 2 sons. Tobacco Use In Past 30 Days: 5 or More Cigarettes/Day Alcohol Use: Never Hospital Course Patient was admitted to a locked, inpatient psychiatric unit. A general medical consultation was obtained. Appropriate precautions were in place throughout patient's hospital stay. Patient was seen and examined daily on the unit by psychiatry and also visited by counselor. Psychotropic medications were adjusted. Patient tolerated medication changes well without side effects. Patient had improvement in presenting psychiatric symptomatology during the course of his hospital stay. There was no evidence of any suicidality or homicidality on the inpatient unit. Patient's behavior improved with benefit of psychopharmacologic treatment. Counselor has reached out to the patient's sister, and she feels the patient is improved and is comfortable receiving him home. On the day of discharge: Patient seen and examined. Chart reviewed. Case discussed with nursing staff who reports that the patient has been no behavioral problem overnight. On my examination today, the patient is in good spirits. He is eager for discharge from the inpatient psychiatric unit. He denies any suicidal or homicidal ideation, intent or plan on direct questioning and contracts for safety. No issues with mood, no depressive or hypomanic/ manic symptoms noted. He denies any audiovisual hallucinations, and I can elicit no frankly delusional material. He denies side effects from medications. I have provided psychoeducation regarding his current medication regimen. He has no physical complaints. I have myself placed a call to patient 's sister, Ms. Cortes, today and she confirms that she believes the patient is improved from a psychiatric standpoint and is comfortable accepting him home. I reviewed the patient's medications with her as well. Weighing the acute, chronic, and protective factors and based on the available evidence, I school operations manager to a reasonable degree of medical certainty that the patient is at low imminent risk of harm to self or others from a mental illness and his level of function is adequate for outpatient care. The patient has maximized benefit from this inpatient psychiatric hospital stay and will be discharged today into his sister's care. Patient is to follow-up psychiatrically as arranged by counselor. He is also to follow-up with primary care, and I have ordered a BMP in a week to follow-up at his hypokalemia. I counseled the patient regarding warning signs for need to return to the psychiatric emergency room as part of the general safety plan. I have left a for patient's outpatient provider requesting a call back to discuss hospital course, discharge meds, etc. Results Blood Pressure 156 / 100 Vital Signs Date Time Temp Pulse Resp B/P Pulse Ox O2 Delivery O2 Flow Rate FiO2 10/31/16 16:01 97.3 60 18 156/100 10/31/16 06:42 97 Item Value Date Time White Blood Count 4.5 TH/MM3 10/25/16 0600 Hemoglobin 13.5 GM/DL 10/25/16 0600 Platelet Count 192 TH/MM3 10/25/16 0600 Sodium Level 141 MEQ/L 10/25/16 0824 Potassium Level 3.3 MEQ/L L 10/25/16 0824 Chloride Level 107 MEQ/L 10/25/16 0824 Carbon Dioxide Level 23.6 MEQ/L 10/25/16 0824 Blood Urea Nitrogen 11 MG/DL 10/25/16 0824 Creatinine 1.09 MG/DL 10/25/16 0824 Random Glucose 129 MG/DL H 10/25/16 0824 Iron Level 90 MCG/DL 10/19/16 0620 Total Iron Binding Capacity 382 MCG/DL 10/19/16 0620 Percent Iron Saturation 23.5 % 10/19/16 0620 Ferritin 77 NG/ML 10/19/16 0620 Aspartate Amino Transf (AST/SGOT) 19 U/L 10/16/16 1310 Alanine Aminotransferase (ALT/SGPT) 42 U/L 10/16/16 1310 Alkaline Phosphatase 77 U/L 10/16/16 1310 Thyroid Stimulating Hormone 3rd Gen 1.650 uIU/ML 10/19/16 0620 English Level 0.8 MEQ/L 10/16/16 1310 Urine Opiates Screen NEG 10/16/16 1310 Urine Barbiturates Screen NEG 10/16/16 1310 Urine Amphetamines Screen NEG 10/16/16 1310 Urine Benzodiazepines Screen NEG 10/16/16 1310 Urine Cocaine Screen NEG 10/16/16 1310 Urine Cannabinoids Screen NEG 10/16/16 1310 Summary of Procedures None done Imaging None done Pending results at discharge: No Medications # of Antipsychotic meds at D/C: 2 Appropriate >1 Antipsych meds?: 4 Approp Antipsych med options 1 - Minimum of three failed multiple trials of monotherapy. 2 - Documented plan to taper to monotherapy due to previous use of multiple meds OR cross-taper in progress at D/C. 3 - Documentation of augmentation of Clozapine. 4 - Justification other than those listed in allowable values 1-3, document here : Required multiple antipsychotics for adequate stabilization Discharge Discharge Date: Nov 01, 2016 Discharge Diagnosis: (1) Paranoid type schizophrenia, chronic state Diagnosis: Principal (stabilized) ICD Code: F20.0 GAF on discharge is 55. Mental Status Exam at Disch Patient is casually dressed. He is well groomed. He is awake and alert and oriented to person and hospital as well as approximate date. No evidence of delirium. No motor abnormalities noted. Speech is within normal limits for rate, tone and volume. Language and fund of knowledge seem approximately average. Focus and concentration intact. Memory grossly intact on clinical exam. Mood is fair and affect is euthymic. Thought process generally linear, a little focused on discharge. No loosening of associations. No delusional material elicited. Denies audiovisual hallucinations. Denies suicidal or homicidal ideation, intent or plan. Insight and judgment are likely chronically poor. Pt Condition on Discharge: Stable Discharge Disposition: Discharge Home Discharge Instructions Diet Instructions: As Tolerated, No Restrictions Activities you can perform: Weight Bearing as Nupur Scheduled Appointment: as per counselor's notes New Orders: BASIC METABOLIC PROF - 1 Week New Medications: Haloperidol Decanoate Inj (Haldol Decanoate Inj) 100 Mg/Ml Inj 300 MG IM Q28D This dose of Haldol Decanote is due on 11/18/2016. Mental Health # 1 Ref 0 VIAL Amlodipine (Norvasc) 10 Mg Tab 10 MG PO DAILY Blood Pressure Management Days 15 Ref 1 TAB Doxazosin (Cardura) 2 Mg Tab 2 MG PO HS Blood Pressure Management Days 15 Ref 1 TAB Haloperidol (Haloperidol) 10 Mg Tab 10 MG PO QID Continue taking oral Haldol at least until your next Haldol Decanoate injection or as instructed by outpatient provider. Mental Health Days 15 Ref 1 TAB Hydrochlorothiazide (Hydrochlorothiazide) 50 Mg Tab 50 MG PO DAILY Blood Pressure Management Days 15 Ref 1 TAB Olanzapine (Olanzapine) 5 Mg Tab 7.5 MG PO HS Mental Health Days 15 Ref 1 TAB ([Benztropine]) 2 MG TAB 2 MG PO TID Side effect management Days 15 Ref 1 TAB Continued Medications: English Carbonate (English Carbonate) 300 Mg Cap 300 MG PO BID Mental Health Days 15 Ref 1 CAP (This prescription has been renewed) Discontinued Medications: Amlodipine (Amlodipine) 5 Mg Tab 5 MG PO DAILY Blood Pressure Management #30 Ref 0 TAB Benztropine (Benztropine) 0.5 Mg Tab 1 MG PO BID #60 Ref 0 TAB Benztropine (Benztropine) 0.5 Mg Tab 1 MG PO TID #60 Ref 0 TAB Diphenhydramine (Diphenhydramine) 25 Mg Cap 50 MG PO ONCE Allergies #1 Ref 0 CAP Diphenhydramine HCl (Benadryl Allergy) 25 Mg Cap PRN ANXIETY Doxazosin (Doxazosin) 4 Mg Tab 4 MG PO DAILY PRN SBP>160, DBP>90 #30 Ref 0 TAB Haloperidol (Haloperidol) 10 Mg Tab 10 MG PO TID PRN ANXIETY AND/OR AGITATION Ref 0 TAB Hydrochlorothiazide (Hydrochlorothiazide) 25 Mg Tab 25 MG PO DAILY #30 Ref 0 TAB English Carbonate (English Carbonate) 300 Mg Tab 300 MG PO BID NEB Ref 0 TAB Discharge Time > 30 minutes Discharge/Advance Care Plan Health Problems: (1) Paranoid type schizophrenia, chronic state Goals to promote your health * To prevent worsening of your condition and complications * To maintain your health at the optimal level Directions to meet your goals Take your medications as prescribed Follow your dietary instruction Follow activity as directed Keep your appointments as scheduled Take your immunizations and boosters as scheduled If your symptoms worsen call your PCP, if no PCP go to Urgent Care Center or Emergency Room For 13/11 questions related to your inpatient stay or results of tests pending at discharge, please contact Dr. Francisco Iniguez at Smoking is Dangerous to Your Health. Avoid second hand smoking Francisco Iniguez MD Nov 01, 2016 13:21
[2016-11-01] MEDS: DOXAZOSIN MESYLATE 2 MG TAB PO SCH (20:37)
[2016-11-01] MEDS: OLANZapine 5 MG TAB PO SCH (20:38)
== END 2016-11-01 10:00 | disposition home or self-care (01) | DRG 885 ==
LOC: NEPD 12:10 → NEDA 10-17 08:11 → H270 10-17 08:25 → H250 10-23 14:55
PROVIDERS: ADMIT Psychiatry & Neurology Psychiatry; ATTEND Psychiatry & Neurology Psychiatry
DX: F20.0 Paranoid schizophrenia (principal); D70.9 Neutropenia, unspecified; I10 Essential (primary) hypertension; R25.1 Tremor, unspecified; D64.9 Anemia, unspecified; F17.210 Nicotine dependence, cigarettes, uncomplicated; E87.6 Hypokalemia
CPT/HCPCS: 80048; 80053; 80061; 80178; 80307; 82728; 83036; 83540; 83550; 83735; 84443; 85025; 93005; J1631; Q0163